=== PATIENT | female | born 2000 | race Caucasian/White ===

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

== ENCOUNTER 2021-07-12 19:04 | Emergency (ER) | payer OTHER, SELFPAY ==
[2021-07-12 19:10] VITALS: BP 118/73; PULSE 97; RESP 16; TEMP 36.2; O2SAT 100
--- NOTE | 2021-07-12 19:17 | ED.URI ---
HPI - URI/Sore Throat General Chief Complaint: Upper Respiratory Infection Stated Complaint: Sinus,Stuffy Nose,Lt Ear Irritation Time Seen by Provider: 07/12/21 19:20 Source: patient and RN notes reviewed Mode of arrival: ambulatory Limitations: no limitations History of Present Illness HPI Narrative: 21-year-old female with history of type 1 diabetes presents with concern for sinus pain, pressure, stuffy nose, left ear pain and pressure. Reports she has had upper respiratory symptoms for approximately 3 weeks and it has evolved into sinus pain and ear pressure. She reports she has been taking DayQuil and Flonase. She denies cough, shortness of breath, fever, body aches, chills, sweats. Reports she works at a daycare. MD elicited complaint: cough and sore throat Related Data Home Medications Medication Instructions Recorded Confirmed insulin aspart U-100 [Novolog 1 unit SUBCUT DIRECTED 07/12/21 07/12/21 U-100 Insulin aspart] Allergies Allergy/AdvReac Type Severity Reaction Status Date / Time No Known Allergies Allergy Verified 07/12/21 19:21 Review of Systems Review of Systems: CONSTITUTIONAL: Denies malaise, chills, sweats, or fever. EYES: Denies visual changes, redness, or discharge. ENT: Reports rhinorrhea, congestion, sinus pain, otalgia. Sore throat. CARDIOVASCULAR: Denies chest pain, palpitations, or edema. RESPIRATORY: Denies cough. Denies dyspnea. GASTROINTESTINAL: Denies abdominal pain, nausea, vomiting, diarrhea SKIN: Denies rash or itching. MUSCULOSKELETAL: Denies myalgia. NEUROLOGIC: Reports headache. All systems reviewed & are unremarkable except as noted in HPI and below PMFSH Comments At time of signature, agree with nursing past medical, surgical, social and family history. There is no relevant family history pertinent to the presenting complaint Exam Narrative: GENERAL: Well-appearing, well-nourished, and in no acute distress. HEAD: Normocephalic EYES: PERRLA, conjunctivae clear ENT: Nares clear, turbinates edematous and erythematous, sinus tenderness. Mucous membranes moist. TM pearly posada with sharp light reflex bilaterally; no tragal tenderness. Oropharynx not erythematous without lesions. Tonsils not enlarged and without exudate, no drooling, no hoarseness, no trismus, uvula midline. NECK: Supple. No lymphadenopathy CHEST: Clear to auscultation, breath sounds equal. No wheezing, rhonchi, rales, or stridor. No respiratory distress, speaks in full sentences. HEART: Regular rate and rhythm. No murmur heard. SKIN: Warm, dry, no rash. NEURO: Alert and oriented x3. PSYCH: Normal mood and affect Course Course Emergency Course: Patient is aware of diagnosis, understands and agrees to treatment plan. Anticipatory guidance given. Patient agrees to follow-up as directed and is aware of reasons to seek care at the emergency department. Portions of this record may have been created with voice recognition software Level of Care: Express Care Visit Vital Signs Vital signs: Reviewed. MDM - URI/Sore Throat MDM Narrative Medical decision making narrative: Differential diagnosis considered: Bueno virus, strep pharyngitis, allergic rhinitis, upper respiratory tract infection, sinusitis, rhinosinusitis, nasopharyngitis. viral pharyngitis, otitis media, otitis externa, pneumonia, bronchitis, viral cough syndrome, viral syndrome, and influenza. Exam findings show no acute concerns or changes; patient is non-toxic appearing and is in no distress. Patient is appropriate for outpatient treatment and follow-up. Lab Data Attestation: I reviewed the patient's lab results. Critical Care Time Critical Care Time Critical Care Time: No Discharge Plan Discharge Clinical Impression: Acute bacterial sinusitis Patient Disposition: Home, Self-Care Condition: Stable Instructions: Antibiotic Form, Sinusitis (ED) Additional Instructions: Take medications as prescribed Nonprescription pain medications
== END 2021-07-12 19:31 | disposition home or self-care (01) ==
PROVIDERS: Emergency Provider Nurse Practitioner; PCP Pediatrics
DX: J01.90 Acute sinusitis, unspecified (principal); E10.9 Type 1 diabetes mellitus without complications
CPT/HCPCS: 99213; G0463

== ENCOUNTER 2021-09-06 19:29 | Emergency (ER) | payer OTHER, SELFPAY ==
--- NOTE | 2021-09-06 19:34 | ED.URI ---
HPI - URI/Sore Throat General Stated Complaint: Body Aches,Headache,Chills,Runny Nose Time Seen by Provider: 09/06/21 19:40 Source: patient and RN notes reviewed Mode of arrival: ambulatory Limitations: no limitations History of Present Illness HPI Narrative: 21-year-old female with history of celiac disease and type 1 diabetes presents with concern for 1 day history of body aches, chills, rhinorrhea. Reports she took an at home COVID test at negative. Reports she had COVID ago. Reports she works at the [employer] where flu has been. Reports she is taking antihistamines for her symptoms. She denies nausea, vomiting, diarrhea MD elicited complaint: rhinorrhea and nasal congestion Related Data Home Medications Medication Instructions Recorded Confirmed insulin aspart U-100 [Novolog 1 unit SUBCUT DIRECTED 07/12/21 09/06/21 U-100 Insulin aspart] Allergies Allergy/AdvReac Type Severity Reaction Status Date / Time gluten Allergy Severe Abdominal Verified 09/06/21 19:53 Pain Review of Systems Review of Systems: CONSTITUTIONAL: Reports malaise, chills, fever. EYES: Denies visual changes, redness, or discharge. ENT: Reports rhinorrhea, congestion. Denies sinus pain, otalgia and sore throat. CARDIOVASCULAR: Denies chest pain, palpitations, or edema. RESPIRATORY: Reports occasional cough. Denies dyspnea. GASTROINTESTINAL: Denies abdominal pain, nausea, vomiting, diarrhea SKIN: Denies rash or itching. MUSCULOSKELETAL: Reports myalgia. NEUROLOGIC: Denies headache. All systems reviewed & are unremarkable except as noted in HPI and below [facility] Comments At time of signature, agree with nursing past medical, surgical, social and family history. There is no relevant family history pertinent to the presenting complaint Exam Narrative: GENERAL: Nontoxic-appearing and in no acute distress. HEAD: Normocephalic EYES: PERRLA, conjunctivae clear ENT: Nares clear, clear discharge. Mucous membranes moist. TM pearly posada with sharp light reflex bilaterally; no tragal tenderness. Oropharynx not erythematous without lesions. Tonsils not enlarged and without exudate, no drooling, no hoarseness, no trismus, uvula midline. NECK: Supple. No lymphadenopathy CHEST: Clear to auscultation, breath sounds equal. No wheezing, rhonchi, rales, or stridor. No respiratory distress, speaks in full sentences. HEART: Regular rate and rhythm. No murmur heard. SKIN: Warm, dry, no rash. NEURO: Alert and oriented x3. PSYCH: Normal mood and affect Course Course Emergency Course: Patient is aware of diagnosis, understands and agrees to treatment plan. Anticipatory guidance given. Patient agrees to follow-up as directed and is aware of reasons to seek care at the emergency department. Portions of this record may have been created with voice recognition software Level of Care: Express Care Visit Vital Signs Vital signs: Reviewed. MDM - URI/Sore Throat MDM Narrative Medical decision making narrative: Differential diagnosis considered: Bueno virus, strep pharyngitis, allergic rhinitis, upper respiratory tract infection, sinusitis, rhinosinusitis, nasopharyngitis. viral pharyngitis, otitis media, otitis externa, pneumonia, bronchitis, viral cough syndrome, viral syndrome, and influenza. Exam findings show no acute concerns or changes; patient is non-toxic appearing and is in no distress. Patient is appropriate for outpatient treatment and follow-up. Lab Data Attestation: I reviewed the patient's lab results. Critical Care Time Critical Care Time Critical Care Time: No Discharge Plan Discharge Clinical Impression: Acute viral syndrome Patient Disposition: Home, Self-Care Condition: Stable Instructions: Viral Syndrome (ED) Additional Instructions: Your rapid influenza is negative -Your symptoms are likely caused by a virus, and antibiotic does not cure viral illness. -Take strict precautions to prevent the spread of your virus. Be diligen
[2021-09-06 19:41] VITALS: BP 122/71; PULSE 121; RESP 18; TEMP 37.9; O2SAT 100
== END 2021-09-06 20:03 | disposition home or self-care (01) ==
PROVIDERS: Emergency Provider Nurse Practitioner; PCP Pediatrics
DX: B34.9 Viral infection, unspecified (principal); E10.9 Type 1 diabetes mellitus without complications; K90.0 Celiac disease
CPT/HCPCS: 87804; 99213; G0463

== ENCOUNTER 2022-03-18 14:34 | Emergency (ER) | payer OTHER, SELFPAY ==
[2022-03-18 16:49] VITALS: BP 128/74; PULSE 97; RESP 18; TEMP 36.8; O2SAT 100
--- NOTE | 2022-03-18 17:43 | ED.SKABFB ---
HPI - Skin/Abscess/Foreign Bdy General Chief complaint: Skin/Abscess/Foreign Body Stated complaint: rash Time Seen by Provider: 03/18/22 17:36 Source: patient Mode of arrival: ambulatory Limitations: no limitations History of Present Illness HPI narrative: patient presents today complaining of 3 day history of rash to her right upper leg. Three days prior to that she reports pins and needles feeling to this area. States the rash is very painful and itching. She currently rates her pain 5/10 and has been taking ibuprofen. She is type 1 diabetic. Related Data Home Medications Medication Instructions Recorded Confirmed insulin aspart U-100 100 unit/mL 1 unit subcut DIRECTED 07/12/21 09/06/21 subcutaneous solution (Novolog U-100 Insulin aspart) Allergies Allergy/AdvReac Type Severity Reaction Status Date / Time gluten Allergy Severe Abdominal Verified 09/06/21 19:53 Pain Review of Systems Review of Systems: CONSTITUTIONAL: Denies body aches, fever, chills, or sweats. EYES: Denies visual changes, redness, or discharge. ENT: Denies rhinorrhea, congestion, sore throat, or otalgia. CARDIOVASCULAR: Denies chest pain, palpitations, or edema. RESPIRATORY: Denies cough or dyspnea. GASTROINTESTINAL: Denies abdominal pain, nausea, vomiting, or diarrhea. GENITOURINARY: Denies dysuria or hematuria. SKIN: + Painful rash MUSCULOSKELETAL: Denies back pain, joint pain, or myalgia. NEUROLOGIC: Denies headache, numbness, tingling, or weakness. PSYCH: Denies depression or anxiety. COUNTS INCLUDE 234 BEDS AT THE [facility] Past Medical History Medical History (Updated 03/18/22 @ 17:46 by Gloria Boggs, [facility], ) Type 1 diabetes Comments At time of signature, I have reviewed and agree with nursing past medical, surgical, social and family history unless otherwise noted. Please see nursing chart for further information. There is no relevant family history pertinent to the presenting complaint Exam Narrative: GENERAL: Well-appearing, well-nourished, and in no acute distress. HEAD: Normocephalic, atraumatic. EYES: EOMI. No redness or drainage. Conjunctivae normal. ENT: Mucous membranes pink and moist. NECK: Normal AROM. CHEST: No respiratory distress. EXTREMITIES: Normal range of motion. No edema. SKIN: Warm, dry. Capillary refill normal. Normal skin turgor.+ clusters of erythematous vesicles to the anterior right upper leg. NEURO: No focal deficits. Alert and oriented x3. Gait steady. PSYCH: Normal affect. No signs of depression or anxiety. Course Course Level of Care: Express Care Visit Vital Signs Vital signs: Vital Signs Temperature 98.2 F 03/18/22 16:49 Pulse Rate 97 03/18/22 16:49 Respiratory Rate 18 03/18/22 16:49 Blood Pressure 128/74 03/18/22 16:49 Pulse Oximetry 100 03/18/22 16:49 Oxygen Delivery Room Air 03/18/22 16:49 Temperature 98.2 F 03/18/22 16:49 Pulse Rate 97 03/18/22 16:49 Respiratory Rate 18 03/18/22 16:49 Blood Pressure 128/74 03/18/22 16:49 Pulse Oximetry 100 03/18/22 16:49 Oxygen Delivery Room Air 03/18/22 16:49 Reviewed. Pt has been instructed to follow up with her PCP regarding her elevated blood pressure today. MDM - Skin/Abscess/Foreign Bdy Differential Diagnosis Differential diagnosis: Likely abscess of skin or subcutaneous tissue, viral exanthem, urticaria, herpes zoster, cellulitis, eczema, impetigo and contact dermatitis Critical Care Time Critical Care Time Critical Care Time: No Discharge Plan Discharge Clinical Impression: Herpes zoster Qualifiers: Herpes zoster complications: without complications Qualified Code(s): B02.9 - Zoster without complications Patient Disposition: Home, Self-Care Condition: Stable Instructions: Shingles (ED) Additional Instructions: Please take the valacyclovir as prescribed until gone. Continue ibuprofen for pain. Follow-up with your doctor in 1 week if symptoms are not improving. You
== END 2022-03-18 17:50 | disposition home or self-care (01) ==
PROVIDERS: Emergency Provider Nurse Practitioner; PCP Pediatrics
DX: B02.9 Zoster without complications (principal); E11.9 Type 2 diabetes mellitus without complications; Z79.4 Long term (current) use of insulin
CPT/HCPCS: 99213; G0463

== ENCOUNTER 2022-06-20 12:57 | Emergency (ER) | payer OTHER, SELFPAY ==
[2022-06-20 13:08] VITALS: BP 130/72; PULSE 87; RESP 16; TEMP 36.9; O2SAT 100
--- NOTE | 2022-06-20 13:12 | ED.FEMALEGU ---
HPI - Female Genitourinary General Chief complaint: Urogenital-Female Stated complaint: uti Time Seen by Provider: 06/20/22 13:12 Source: patient, RN notes reviewed and old records reviewed Mode of arrival: ambulatory Limitations: no limitations History of Present Illness HPI Narrative: 22 year old female who presents to [facility] care with complaints of urinary burning and funny odor of her urine for the past 2-3 days, denies any frequency or urgency or any fevers,chills or sweats. Patient reports no abdominal pain or any CVA tenderness, denies any fevers, chills or sweats.Patient is a type I diabetic since age 8 reports that her sugars have been up lately between 200-300 and she did check urine for ketones which was negative. MD elicited complaint: UTI (symptoms) Pertinent past history: other (diabetic type I) Onset (ago): day(s) (2-3) Related Data Home Medications Medication Instructions Recorded Confirmed insulin aspart U-100 100 unit/mL 1 unit subcut DIRECTED 07/12/21 06/20/22 subcutaneous solution (Novolog U-100 Insulin aspart) Allergies Allergy/AdvReac Type Severity Reaction Status Date / Time gluten AdvReac Intermediate Abdominal Verified 06/20/22 13:02 Pain Review of Systems Review of Systems: CONSTITUTIONAL: Denies fever, chills, or sweats. CARDIOVASCULAR: Denies chest pain, palpitations, or edema. RESPIRATORY: Denies cough or dyspnea. GASTROINTESTINAL: Denies abdominal pain, nausea, vomiting, or diarrhea. GENITOURINARY: Reports dysuria,no frequency, urgency. Denies flank pain or hematuria.Reports' funny' urine odor SKIN: Denies rash or itching. MUSCULOSKELETAL: Denies back pain or myalgia. Denies CVA tenderness NEUROLOGIC: Denies headache All systems reviewed & are unremarkable except as noted in HPI and below PMFSH Past Medical History Medical History (Updated 06/20/22 @ 13:49 by Mary Beth Amado NP) Celiac disease Type 1 diabetes UTI (urinary tract infection) Social History Social History (Updated 06/20/22 @ 13:48 by Mary Beth Amado NP) Smoking status: Never smoker Alcohol intake: current Alcohol use details: rare social Substance use type: does not use Living arrangements: with family Gender identity (if verbalized by the patient): Female Comments At time of signature, agree with nursing past medical, surgical, social and family history. There is no relevant family history pertinent to the presenting complaint Exam Narrative: GENERAL: Well-appearing, well-nourished, and in no acute distress. HEAD: Normocephalic, atraumatic. NECK: Supple.no lymphadenopathy CHEST: Clear to auscultation. No respiratory distress.SAO2 100% on room air HEART: Regular rate and rhythm. No murmur heard. Normal peripheral pulses. ABDOMEN: Soft, nontender, nondistended, normal active bowel sounds. No CVA tenderness, reports some burning and urine having funny odor EXTREMITIES: Normal range of motion. No edema. SKIN: Warm, dry, no rash. NEURO: No focal deficits. Alert and oriented x3. Course Course Emergency Course: Patient is aware of diagnosis, understands and agrees to treatment plan.? Anticipatory guidance given.? Patient agrees to follow-up as directed and is aware of reasons to seek care at the emergency department. Portions of this record may have been created with voice recognition software Level of Care: Express Care Visit Vital Signs Vital signs: Vital Signs Temperature 36.9 C 06/20/22 13:08 Pulse Rate 87 06/20/22 13:08 Respiratory Rate 16 06/20/22 13:08 Blood Pressure 130/72 06/20/22 13:08 Pulse Oximetry 100 06/20/22 13:08 Oxygen Delivery Room Air 06/20/22 13:08 Temperature 36.9 C 06/20/22 13:08 Pulse Rate 87 06/20/22 13:08 Respiratory Rate 16 06/20/22 13:08 Blood Pressure 130/72 06/20/22 13:08 Pulse Oximetry 100 06/20/22 13:08 Oxygen Delivery Room Air 06/20/22 13:08 reviewed MDM - Female Genitourinary MDM Narrative
== END 2022-06-20 13:27 | disposition home or self-care (01) ==
PROVIDERS: Emergency Provider Registered Nurse; PCP Pediatrics
DX: R30.0 Dysuria (principal); E10.9 Type 1 diabetes mellitus without complications; Z79.4 Long term (current) use of insulin
CPT/HCPCS: 81003; 87077; 87086; 87186; 99213; G0463

== ENCOUNTER 2024-05-28 16:13 | Emergency (ER) | payer BC, SELFPAY ==
--- OUTSIDE RECORDS SUMMARY | 2024-05-28 16:15 | XMS_ITS | Referral Summary ---
Author Organization [facility] ospital Address [address] [place] [address] Care Team Providers Care Signal Apprentice Name Role Phone Albania Butler MD Primary Care Provider [phone] Allergies Active Allergy Reactions Criticality Noted Date Comments Gluten Diarrhea Low 06/23/2019 Medications glucagon (glucagon) 1 mg kitIndications:Ty pe 1 diabetes mellitus with hyperglycemia (HCC) Use as directed for low blood sugar. 1 kit 11 01/23/20 Active acetone, urine, test strip Use as directed to check for ketones with high blood sugar or illness. 200 strip 11 02/24/20 Active glucagon (Baqsimi) 3 mg/actuation spray,non-aerosol Use as directed for severe low blood sugar. 2 each 3 02/24/20 Active blood-glucose meter kit Use as directed to check blood sugars 5-7 times daily. 1 kit 1 02/24/20 Active insulin pump cart,auto,BT-cntr (Omnipod 5 G6 Intro Kit, Gen 5,) cartridge Use as directed to administer insulin. Change pod every 2-3 days. 1 each 02/24/20 Active insulin pump cart,automated,BT (Omnipod 5 G6 Pods, Gen 5,) cartridge Use as directed to administer insulin. Change pod every 2-3 days. 15 each 11 02/24/20 Active OneTouch Delica Plus Lancet 33 gauge miscIndications:T ype 1 diabetes mellitus with hyperglycemia (HCC) Use as directed to test blood sugar 5-7 times daily. 600 each 3 03/01/20 Active OneTouch Verio test strips stripIndications: Type 1 diabetes mellitus with hyperglycemia (HCC) Use as directed to test blood sugar 5-7 times daily. 600 each 3 03/01/20 Active cholecalciferol (VITAMIN D-3) 25 mcg (1,000 unit) tablet Take 1 tablet (1,000 Units total) by mouth daily 30 tablet 2 03/01/20 Active NovoLOG 100 unit/mL vial for injectionIndicati ons:Type 1 diabetes mellitus with hyperglycemia (HCC) USE DIRECTED BY OCCUPATIONAL HEALTH PROFESSIONAL TO INJECT UP TO 140 UNITS SUBCUTANEOUSLY DAILY PER BASAL/BOLUS PUMP SETTINGS. 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 Resolved Problems Problem Noted Date Diagnosed Date Resolved Date Nonimmune to hepatitis B virus 12/09/2019 04/12/2021 Abdominal pain, generalized 04/10/2019 12/09/2019 Immunizations Name Administration Dates Next Due DTaP, Unspecified 03/14/2006, 6,08/04/2002,10/07,2001,2001 HPV, Quadrivalent 07/11/2013,03/19/2013,11/19/19 13 Hep A, Unspecified 04/09/2008,01/10/2007 Hep B, Unspecified 01/12/2021, 3,2001,04/08 HiB 08/04/2002,2001,2001 Influenza, Quadrivalent, Spl it, Preservative Free, Intramuscular 02/23/2023 Influenza, Trivalent, IM (MDV) 03/16/2012 MMR 03/14/2006,12/12/2002 Meningococcal B, OMV (Bexsero) 12/04/2018 Meningococcal Conjugate (Menveo) 11/18/2012 Meningococcal MCV4P (Menactra) 12/04/2018 Pneumococcal Conjugate PCV 13 12/12/2002 ,2001,2001,06/11 Polio, Unspecified 03/14/2006, 3,2001,06/11 Tdap 11/18/2012 Varicella 08/21/2006,08/04/2002 Social History Tobacco Use Types Packs/Day Years Used Date Smoking Tobacco: Never Smokeless Tobacco: Never Alcohol Use Standard Drinks/Week Comments Never 0 (1 standard drink = 0.6 oz pur e alcohol) AUDIT-C Answer Date Recorded Frequency of Alcohol Consumption Never 04/10/2019 Average Number of Drinks Not on file 019 Frequency of Binge Drinking Not on file 03/23 Comments No Sex and Gender Information Value Date Recorded Sex Assigned at Not on file Legal Sex Female 8:28 AM PRINCIPAL BIOINFORMATICS SPECIALIST Gender Identity Female 09/28/2019 10:39 PM CDT Sexual Orientation Straight 09/28/2019 10 :39 PM CDT Last Filed Vital Signs Vital Sign Reading Time Taken Comments Blood Pressure 120/86 02/23/2023 10:18 AM CDT Pulse 108 02/23/2023 10:18 AM CDT Temperature 36.4 C (97.5 F) 02/23/2023 10:18 AM CDT Respiratory Rate 20 02/23/2023 10:18 AM CDT Oxygen Saturation 99% 02/23/2023 10:18 AM CDT Inhaled Oxygen Concentration - - Weight 64.6 kg (142 lb 6.7 oz) 02/23/2023 10:18 AM CDT Height 169.5 cm (5' 6.73 ) 02/23/2023 10:18 AM C DT Body Mass Index 22.49 02/23/2023 10:18 AM CDT Plan of Treatment Not on file Goals Goal Patient Goal Type Associated Problems Recent Progress Patient-Stated? Author [facility]-Adherence Behavioral [facility] No change(2020 11:44 AM PRINCIPAL BIOINFORMATICS SPECIALIST) No Carmen Calzada, PhD Note: Increase consistency in completing prescribed medical regimen Increase probelm solving skills BH-Anxiety Behavioral Health No change(2020 11:44 AM PRINCIPAL BIOINFORMATICS SPECIALIST) No Fitz-[place]oy[place] Carmen johnson, PhD Note: Decrease anxious rumination Procedures Procedure Name Priority Date/Time Associated Diagnosis Comments ALBUMIN CREATININE RATIO, URINE Routine 02/23/2023 11:19 AM CDT Type 1 diabetes mellitus with hyperglycemia (HCC) LIPID PANEL Routine 02/23/2023 11:12 AM CDT Type 1 diabetes mellitus with hyperglycemia (HCC) TSH Routine 02/23/2023 11:12 AM CDT Type 1 diabetes mellitus with hyperglycemia (HCC) POCT HEMOGLOBIN A1C Routine 02/23/2023 1 0:20 AM CDT Type 1 diabetes mellitus with hyperglycemia (HCC) COMPREHENSIVE METABOLIC PANEL Routine 04/04/2021 8:42 AM PRINCIPAL BIOINFORMATICS SPECIALIST Celiac disease/sprue from Last 3 Months or Most Recently Relevant to Health Maintenance Results * Albumin Creatinine Ratio, Urine (02/23/2023 11:19 AM CDT) Albumin Ur <12.0 mg/L JOSE Comment: Interpretive Data No reference range established. Current interpretive data was last revised 2018. Testing performed by: [address] [address] Creatinine Ur 55.0 mg/dL JOSE Comment: Interpretive Data No reference range established. Current interpretive data was last revised 2018. Testing performed by: [address] [address] Albumin Creatinine Ratio, Ur <22 1 - 29 mg/g JOSE Comment:Testing performed by : [address] [address] Urine (Urine, Clean Catch) 02/23/2023 11:19 AM CDT 02/23/2023 11:51 AM CDT Krishan Halina Honey MEDICAL RECEPTIONIST BILLER LAB URINE ORDERABLES Fi nal Result Performing Organization Address [facility] Co de Phone Number [address] [place] [address] * TSH (02/23/2023 11:12 AM CDT) Thyroid Stimulating Hormone 1.45 0.30 - 4.20 mcIUnit/mL JOSE Comment:Testing performed by : [address] [address] Blood 02/23/2023 11:1 2 AM CDT 02/23/2023 2:02 PM CDT Krishan Méndez MEDICAL RECEPTIONIST BILLER LAB BLOOD ORDERABLES Fi nal Result Performing Organization Address [facility] Co de Phone Number [address] [place] [address] * Lipid panel (02/23/2023 11:12 AM CDT) Cholesterol 191 30 - 199 mg/dL JOSE Comment: Interpretive Data Ages < or = 19 years Acceptable: <170 mg/dL Borderline high: 170-199 mg/dL High: >or= 200 mg/dL Ages > or = 20 years Desirable: <200 mg/dL Borderline high: 200-239 mg/dL High: >or= 240 mg/dL Literature References: 1. Expert Panel on Integrated Guidelines for Cardiovascular Health and Risk Reduction in Children and Adolescents. Pediatrics 2011;128:S213 2. NCEP Expert Panel. Circulation 2004;110:227 Current Interpretive Data was last revised on 2017. Testing performed by: [address] [address] Triglycerides 100 <=149 mg/dL JOSE Comment: Interpretive Data Ages < or = 9 years Acceptable: <75 mg/dL Borderline high: 75-99 mg/dL High: >or= 100 mg/dL Ages 10 to 20 years Acceptable: <90 mg/dL Borderline high: 90-129 mg/dL High: >or= 130 mg/dL Ages > or = 20 years Desirable: <150 mg/dL Borderline high: 150-199 mg/dL High: 200-499 mg/dL Very high: >or= 499 mg/dL Literature References: 1. Expert Panel on Integrated Guidelines for Cardiovascular Health and Risk Reduction in Children and Adolescents. Pediatrics 2011;128:S213 2. NCEP Expert Panel. Circulation 2004;110:227 Current Interpretive Data was last revised on 2017. Testing performed by: [address] [address] HDL 62 >=40 mg/dL JOSE Comment: Interpretive Data Ages < or = 19 years Acceptable: >45 mg/dL Borderline low: 40-45 mg/dL Low: <40 mg/dL Ages > or = 20 years Desirable: >or= 60 mg/dL Low: <40 mg/dL Literature References: 1. Expert Panel on Integrated Guidelines for Cardiovascular Health and Risk Reduction in Children and Adolescents. Pediatrics 2011;128:S213 2. NCEP Expert Panel. Circulation 2004;110:227 Current Interpretive Data was last revised on 2017. Testing performed by: [address] [address] LDL, calculated 109 <=129 mg/dL JOSE Comment: Interpretive Data Ages < or = 19 years Acceptable: <110 mg/dL Borderline high: 110-129 mg/dL High: >or= 130 mg/dL Ages > or = 20 years Optimal: <100 mg/dL Near optimal: 100-129 mg/dL Borderline high: 130-159 mg/dL High: >160 mg/dL Literature References: 1. Expert Panel on Integrated Guidelines for Cardiovascular Health and Risk Reduction in Children and Adolescents. Pediatrics 2011;128:S213 2. NCEP Expert Panel. Circulation 2004;110:227 Current Interpretive Data was last revised on 2017. Testing performed by: [address] [address] Non-HDL Cholesterol 129 mg/dL JOSE Comment: Interpretive Data Ages < or = 19 years Acceptable: <120 mg/dL Borderline high: 120-144 mg/dL High: >145 mg/dL Ages > or = 20 years When triglycerides are >200 mg/dL, Non-HDL cholesterol is a secondary target of therapy with treatment goals that are 30 mg/dL greater than the LDL cholesterol target. Literature References: 1. Expert Panel on Integrated Guidelines for Cardiovascular Health and Risk Reduction in Children and Adolescents. Pediatrics 2011;128:S213 2. NCEP Expert Panel. Circulation 2004;110:227 Current Interpretive Data was last revised on 2017. Testing performed by: [address] [address] Chol/HDL ratio 3 JOSE Comment:Testing performed by : [address] [address] Blood 02/23/2023 11:1 2 AM CDT 02/23/2023 2:02 PM CDT Narrative JOSE - 02/23/2023 2:38 PM CDT These lab test should be done fasting. This means do not eat or drink for at least 12 hours prior to getting your blood drawn. Krishan Méndez NP LAB BLOOD ORDERABLES nal Result [facility] [address] [facility] Department [place] [address] * POCT hemoglobin A1c (02/23/2023 10:20 AM CDT) Hemoglobin A1C, POC 10.9 % Blood spot 02/23/2023 10:2 0 AM CDT Krishan Méndez NP POINT OF CARE TEST ORDE RABLES Final Result * (ABNORMAL) Comprehensive metabolic panel (04/04/2021 8:42 AM PRINCIPAL BIOINFORMATICS SPECIALIST) Glucose 212(H) 65 - 99 mg/dL [facility] - 01 BUN 9 6 - 20 mg/dL [facility] - 01 Creatinine, Serum 0.76 0.57 - 1.00 mg/dL [facility] - 01 eGFR If NonAfricn Am 114 >59 mL/min/1. 73 [facility] - 01 eGFR If Africn Am 132 >59 mL/min/1. 73 [facility] - 01 Comment: In accordance with recommendations from the NKF-ASN Task force, [facility] is in the process of updating its eGFR calculation to the 2020 CKD-EPI creatinine equation that estimates kidney function without a race variable. BUN/creat ratio 12 9 - 23 [facility] - 01 Sodium 139 134 - 144 mmol/L [facility] - 01 Potassium, sr 4.2 3.5 - 5.2 mmol/L [facility] - 01 Chloride 101 96 - 106 mmol/L [facility] - 01 CO2 23 20 - 29 mmol/L [facility] - 01 Calcium 10.0 8.7 - 10.2 mg/dL [facility] - 01 Protein, sr 7.4 6.0 - 8.5 g/dL [facility] - 01 Albumin 4.7 3.9 - 5.0 g/dL [facility] - 01 Globulin, Total 2.7 1.5 - 4.5 g/dL [facility] - 01 A/G Ratio 1.7 1.2 - 2.2 [facility] - 01 Bilirubin, Total 0.5 0.0 - 1.2 mg/dL [facility] - 01 Alk phos 68 42 - 106 IU/L [facility] - 01 Comment:Please note refere nce interval change AST 10 0 - 40 IU/L [facility] - 01 ALT 10 0 - 32 IU/L [facility] - 01 Blood specimen (specimen) 04/04/2021 8:42 AM PRINCIPAL BIOINFORMATICS SPECIALIST 04/04/2021 Narrative [facility] - 04/05/2021 2:10 PM PRINCIPAL BIOINFORMATICS SPECIALIST Performed at: 01 - [facility] [address] [id number] Sales Performance Analyst: Asher Nash PhD, Phone: [phone] Yeni Sullivan MD LAB BLOOD ORDERABLES Final Result [facility] - 01 from Last 3 Months or Most Recently Relevant to Health Maintenance Insurance [employer] HMO HEALTHCARE O [facility] HEALTHCARE O Advance Directives For more information, please contact: [phone] Documents on File Type Date Recorded Patient Plant Supervisor Expl anation ADVANCE DIRECTIVE 05/15/2019 6:40 AM ADVANCE DIRECTIVE 04/10/2019 3:09 PM Care Teams Signal Apprentice Relationship Specialty Start Date End Date Albania Butler MD [address] [place] [address] PCP - General 11/08/16
--- OUTSIDE RECORDS SUMMARY | 2024-05-28 16:15 | XMS_ITS | Clinical Summary ---
Author Organization [facility] ospital Address [address] [place] [address] Care Team Providers Care Employment Assistant Name Role Phone Albania Butler MD Primary Care Provider [phone] Allergies Active Allergy Reactions Criticality Noted Date [...] mellitus with hyperglycemia (HCC) USE DIRECTED BY DATA OPERATIONS DIRECTOR TO INJECT UP TO 140 UNITS SUBCUTANEOUSLY [...] Unspecified 03/14/2006, 3,2001,06/11 Tdap 11/18/2012 Varicella 08/21/2006,08/04/2002 Surgical History Surgery Date Site/Laterality Comments UPPER GASTROINTESTINAL ENDOSCOPY 04/23/2010 - 04/22/2011 Medical History Medical History Date Comments Eczema Anxiety Type 1 diabetes mellitus (HCC) 11/09/2015 Hyperlipidemia 06/17/2014 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 Abdominal pain, generalized 04/10/2019 Nonimmune to hepatitis B virus 12/09/2019 Family History Medical History Relation Name Comments Deep vein thrombosis Father Cholelithiasis Mother Heart disease Mother Reported Famil y History Of Heart Disease - grandparents (Added by TW Conv) Migraines Mother Migraine Headac he - (Added by TW Conv) Anxiety disorder Sister Depression Sister Relation Name Status Comments Brother Alive Father Alive Mother Alive Sister Alive Social History Tobacco Use Types Packs/Day Years [...] on file Legal Sex Female 8:28 AM JAVA CONSULTANT Gender Identity Female 09/28/2019 10:39 PM CDT Sexual Orientation Straight 09/28/2019 10 :39 PM CDT Obstetrics History Last Filed Vital Signs Vital Sign Reading [...] 02/23/2023 10:18 AM CDT Plan of Treatment Health Maintenance Due Date Last Done Comments Cervical Cancer Screening 2001 Depression Screening 2001 Foot Exam 2001 Hepatitis C Screening 2001 Pneumococcal vaccine <65 (1 of 1 - PPSV23 or PCV20) 2007 12/12/2002, 2001, 2001, Additional history exists Meningococcal B Vaccine (2 o f 2 - Risk Bexsero 2-dose series) 01/01/2019 12/04/2018 Regular Well Visit/Exam 18-64 2019 Dilated Eye Exam 02/09/2022 02/09/2021 eGFR 04/04/2022 04/04/2021, 11/25/2019 DTaP/Tdap/Td Vaccine (7 - Td or Tdap) 11/18/2022 11/18/2012, 03/14/2006, 10/16/2005, Additional history exists Hemoglobin A1C 08/24/2023 02/23/2023, 03/23, 01/23/2020, Additional history exists Influenza Vaccine (#1) 2023 , 02/23/2019, 03/16/2012 Albumin Creatinine Ratio, Urine 02/24/2024 02/23/2023, 04/04/2021, 02/28/2019, Additional history exists Lipid Panel 02/24/2024 02/23/2023, 03/23, 02/28/2019 TSH Level 02/24/2024 02/23/2023, 03/23, 02/28/2019 Varicella Vaccines Completed 08/21/2006, 08/04/2002 HPV Vaccines Completed 07/11/2013, 02/22, 11/18/2012 Goals Goal Patient Goal Type Associated Problems Recent Progress Patient-Stated? Author BH-[facility]herence [facility]al [facility] No change(2020 11:44 AM JAVA CONSULTANT) No Fitz-[place] ttCarmen, PhD Note: Increase consistency in completing prescribed medical regimen Increase probelm solving skills BH-Anxiety Behavioral Health No change(2020 11:44 AM JAVA CONSULTANT) No Carmen Calzada, PhD Note: Decrease anxious rumination Procedures Procedure [...] COMPREHENSIVE METABOLIC PANEL Routine 04/04/2021 8:42 AM JAVA CONSULTANT Celiac disease/sprue from Last 3 Months or Most Recently Relevant to Health Maintenance Results * Albumin Creatinine Ratio, Urine (02/23/2023 11:19 AM CDT) Albumin Ur <12.0 mg/L JOSE Comment: Interpretive Data No reference range established. Current interpretive data was last revised 2018. Testing performed by: [address] [address] Creatinine Ur 55.0 mg/dL JOSE Comment: Interpretive Data No reference range established. Current interpretive data was last revised 2018. Testing performed by: [address] [address] Albumin Creatinine Ratio, Ur <22 1 - 29 mg/g [facility]SE Comment:Testing performed by : [address] [address] Urine (Urine, Clean Catch) 02/23/2023 11:19 AM CDT 02/23/2023 11:51 AM CDT us Krishan Méndez REGISTERED LAND SURVEYOR LAB URINE ORDERABLES Fi nal Result Performing Organization Address [facility] Co de Phone Number [address] [place] [address] * TSH (02/23/2023 11:12 AM CDT) Thyroid Stimulating Hormone 1.45 0.30 - 4.20 mcIUnit/mL JOSE Comment:Testing performed by : [address] [address] Blood 02/23/2023 11:1 2 AM CDT 02/23/2023 2:02 PM CDT Krishan Méndez REGISTERED LAND SURVEYOR LAB BLOOD ORDERABLES Fi nal Result Performing Organization Address [facility] de Phone Number [address] [address] * Lipid panel (02/23/2023 11:12 AM CDT) [...] last revised on 2017. Testing performed by: [address] [address] Triglycerides 100 <=149 mg/dL JOSE Comment: Interpretive [...] last revised on 2017. Testing performed by: [address] [address] HDL 62 >=40 mg/dL JOSE Comment: Interpretive [...] last revised on 2017. Testing performed by: [address] [address] LDL, calculated 109 <=129 mg/dL JOSE Comment: [...] last revised on 2017. Testing performed by: [address] [address] Non-HDL Cholesterol 129 mg/dL JOSE Comment: Interpretive [...] last revised on 2017. Testing performed by: [address] [address] Chol/HDL ratio 3 [facility] Comment:Testing performed by : [address] [address] Blood 02/23/2023 11:1 2 AM CDT 02/23/2023 2:02 PM CDT Narrative JOSE - 02/23/2023 2:38 PM CDT These lab test should be done fasting. This means do not eat or drink for at least 12 hours prior to getting your blood drawn. Krishan Méndez NP LAB BLOOD ORDERABLES Fi nal Result [facility] [address] [facility] Department [place] [address] * POCT hemoglobin A1c (02/23/2023 10:20 AM CDT) Pathologist [facility] Hemoglobin A1C, POC 10.9 % Blood spot 02/23/2023 10:2 0 AM CDT Krihsan Méndez NP POINT OF CARE TEST ORDE RABYOSELIN Final Result * (ABNORMAL) Comprehensive metabolic panel (04/04/2021 8:42 AM JAVA CONSULTANT) Glucose 212(H) 65 - 99 mg/dL [facility] - 01 BUN 9 6 - 20 mg/dL [facility] - 01 Creatinine, Serum 0.76 0.57 - 1.00 mg/dL [facility] - 01 eGFR If NonAfricn Am 114 >59 mL/min/1. 73 [facility] - 01 eGFR If Africn Am 132 >59 mL/min/1. 73 [facility] - 01 Comment: In accordance with recommendations from the NKF-ASN Task force, [facility] is in the process of updating its [...] 01 Blood specimen (specimen) 04/04/2021 8:42 AM JAVA CONSULTANT 04/04/2021 Narrative [facility] - 04/05/2021 2:10 PM JAVA CONSULTANT Performed at: 01 - [facility] [address] [id number] Degreasing Wheel Operator: Asher Nash PhD, Phone: [phone] us Yeni Sullivan MD LAB BLOOD ORDERABLES Final Result [facility] - 01 from Last 3 Months or Most Recently Relevant to Health Maintenance [place] [address] [address] [place] [address] [place] [place] [address] HEALTHCARE O [facility] HEALTHCARE O Advance Directives For more information, please contact: [phone] Documents on File Type Date Recorded Patient Coal Mine Inspector Expl anation ADVANCE DIRECTIVE 05/15/2019 6:40 AM ADVANCE DIRECTIVE 04/10/2019 3:09 PM Care Teams Employment Assistant Relationship Specialty Start Date End Date Albania Butler MD [address] [place] [address] PCP - General 11/08/16
[2024-05-28 16:32] VITALS: BP 135/83; PULSE 98; RESP 18; TEMP 36.4; O2SAT 100
--- NOTE | 2024-05-28 16:39 | ED.FEMALEGU ---
HPI - Female Genitourinary General Chief complaint: Urogenital-Female Stated complaint: kidney pain Time Seen by Provider: 05/28/24 16:39 Source: patient and RN notes reviewed Mode of arrival: ambulatory Limitations: no limitations History of Present Illness HPI Narrative: 24 y/o female with Type 1 DM presented for c/o right flank pain. Onset yesterday. Pain worsened throughout night. endorses associated cloudy urine with foul odor. Denies urinary frequency, urgency, hematuria, nausea, vomiting, diarrhea, abdominal pain, flank pain, constipation, diarrhea, fevers or chills. Denies injury. Took Tylenol with significant improvement in the pain. Related Data Home Medications ?Medication ?Instructions ?Recorded ?Confirmed ?Last Taken ?Type insulin aspart U-100 100 unit/mL 1 unit subcut DIRECTED 07/12/21 06/20/22 Unknown History subcutaneous solution (Novolog U-100 Insulin aspart) ergocalciferol (vitamin D2) 1,250 05/28/24 Unknown History mcg (50,000 unit) capsule levothyroxine 25 mcg tablet mcg 05/28/24 Unknown History (Unithroid) Allergies Allergy/AdvReac Type Severity Reaction Status Date / Time gluten AdvReac Intermediate Abdominal Verified 05/28/24 16:43 Pain Review of Systems Review of Systems: CONSTITUTIONAL: Denies body aches, fever, chills, or sweats. CARDIOVASCULAR: Denies chest pain, palpitations, or edema. RESPIRATORY: Denies cough or dyspnea. GASTROINTESTINAL: Denies abdominal pain, nausea, vomiting, or diarrhea. GENITOURINARY: denies dysuria, frequency, urgency, hematuria, reports right flank pain SKIN: Denies rash, itching, or wounds. MUSCULOSKELETAL: Denies back pain or myalgia. [facility] Past Medical History Medical History UTI (urinary tract infection) Celiac disease Type 1 diabetes Social History Social History Smoking status: Never smoker Alcohol intake: current Alcohol use details: rare social Substance use type: does not use Living arrangements: with family Gender identity (if verbalized by the patient): Female Comments At time of signature, I have reviewed and agree with nursing past medical, surgical, social and family history unless otherwise noted. Please see nursing chart for further information. There is no relevant family history pertinent to the presenting complaint Exam Narrative: GENERAL: Well-appearing and in no acute distress. ENT: Mucous membranes pink and moist. NECK: Normal AROM. Supple. CHEST: No respiratory distress. Clear to auscultation. HEART: Regular rate and rhythm. ABDOMEN: Soft, nontender, nondistended, normal active bowel sounds. Mild right CVA tenderness MUSCULOSKELETAL: No bony tenderness. SKIN: Warm, dry, no rash. NEURO: No focal deficits. Alert and oriented x3. Gait steady. PSYCH: Normal affect. Course Course Emergency Course: Patient is aware of diagnosis, understands and agrees to treatment plan. Anticipatory guidance given. Patient agrees to follow-up as directed and is aware of reasons to seek care at the emergency department. Portions of this record may have been created with voice recognition software Level of Care: Express Care Visit Vital Signs Vital signs: Vital Signs Temperature 97.6 F 05/28/24 16:32 Pulse Rate 98 05/28/24 16:32 Respiratory Rate 18 05/28/24 16:32 Blood Pressure 135/83 05/28/24 16:32 Pulse Oximetry 100 05/28/24 16:32 Oxygen Delivery Room Air 05/28/24 16:32 Temperature 97.6 F 05/28/24 16:32 Pulse Rate 98 05/28/24 16:32 Respiratory Rate 18 05/28/24 16:32 Blood Pressure 135/83 05/28/24 16:32 Pulse Oximetry 100 05/28/24 16:32 Oxygen Delivery Room Air 05/28/24 16:32 Reviewed MDM - Female Genitourinary MDM Narrative Medical decision making narrative: Discussed physical exam findings and urine dip, right flank pain. Aware of s/s to look for regarding renal stones. Declines treatment for UTI at this time, will culture and treat accordingly. Advised supportive measures and signs/symptoms to go to the ER. Pt is appropriate for outpt treatment and f/u. Differential Diagnosis Differential diagnosis: Likely urinary tract infection and cystitis Lab Data Labs: Lab Results 05/28/24 Range/Units 16:43 POC Urine Color Light/pale POC Urine Clarity Clear POC Urine pH 5.5 POC Ur Specif Pitts 1.010 POC Urine Protein Negative (Negative) POC Ur Glucose (UA) 1+ (Negative) POC Urine Ketones Negative (Negative) POC Urine Blood 2+ (Negative) POC Urine Nitrite Negative (Negative) POC Urine Bilirubin Negative (Negative) POC Urine Urobilinogen 0.2 POC U Leukocyte Esteras 1+ (Negative) Discharge Plan Discharge Clinical Impression: Acute right flank pain Patient Disposition: Home, Self-Care Condition: Stable Instructions: Antibiotic Form, Flank Pain (ED) Additional Instructions: Your urine will be sent of for a culture to determine if bacteria is causing your symptoms. If the culture shows a UTI, you will be notified and an antibiotic will be called in for you. Increase water intake Tylenol as needed for pain/fever Avoid heavy lifting, pushing, or pulling until symptoms are fully resolved you will need to follow up with your PCP, call today to schedule follow-up appointment. Go to the ER for any worsening symptoms or concerns. Patient Language: Greek Prescriptions: No Action levothyroxine [Unithroid] 25 mcg tablet ergocalciferol (vitamin D2) 1,250 mcg (50,000 unit) capsule insulin aspart U-100 [Novolog U-100 Insulin aspart] 100 unit/mL solution 1 unit subcut DIRECTED Follow-up/Referrals: UNKNOWN,DOCTOR [Primary Care Provider] - Time of Disposition: 16:57
[2024-05-28 16:46] LABS: EDUAAPPEAR Clear; EDUABILI Negative (Negative); EDUABLOOD 2+ (Negative); EDUACOLOR1 Light/Pale; EDUAGLUCOSE 1+ (Negative); EDUAKETONE Negative (Negative); EDUALEUKO 1+ (Negative); EDUANITRATE Negative (Negative); EDUAPH 5.5; EDUAPROTEIN Negative (Negative); EDUAUROBILI 0.2
== END 2024-05-28 17:02 | disposition home or self-care (01) ==
PROVIDERS: Emergency Provider Nurse Practitioner Family
DX: R10.9 Unspecified abdominal pain (principal); E10.9 Type 1 diabetes mellitus without complications; K90.0 Celiac disease; Z79.4 Long term (current) use of insulin; Z79.899 Other long term (current) drug therapy
CPT/HCPCS: 81003; 87077; 87086; 87186; 99213; G0463

== ENCOUNTER 2024-05-30 12:35 | Emergency (ER) | payer BC, SELFPAY ==
--- OUTSIDE RECORDS SUMMARY | 2024-05-30 12:39 | XMS_ITS | Referral Summary ---
Author Organization [facility] Address [address] [place] [address] Care Team Providers Care Restaurant Hourly Team Member Name Role Phone Albania [place] MD Primary Care Provider [phone] Allergies Active Allergy Reactions Criticality Noted Date [...] mellitus with hyperglycemia (HCC) USE DIRECTED BY SPEECH/LANGUAGE THERAPIST TO INJECT UP TO 140 UNITS SUBCUTANEOUSLY [...] on file Legal Sex Female 8:28 AM PRIMARY THERAPIST Gender Identity Female 09/28/2019 10:39 PM CDT [...] [facility] No change(2020 11:44 AM PRIMARY THERAPIST) No Carmen Calzada, PhD Note: Increase consistency in completing prescribed medical regimen Increase probelm solving skills [facility] No change(2020 11:44 AM PRIMARY THERAPIST) No [place] Carmen johnson, PhD Note: Decrease anxious rumination [...] COMPREHENSIVE METABOLIC PANEL Routine 04/04/2021 8:42 AM PRIMARY THERAPIST Celiac disease/sprue from Last 3 Months or Most Recently Relevant to Health Maintenance Results * Albumin Creatinine Ratio, Urine (02/23/2023 11:19 AM CDT) Albumin Ur <12.0 mg/L JOSE Comment: Interpretive Data No reference range established. Current interpretive data was last revised 2018. Testing performed by: [address] [address] Creatinine Ur 55.0 mg/dL JOSE Comment: Interpretive Data No reference range established. Current interpretive data was last revised 2018. Testing performed by: [address] [address] Albumin Creatinine Ratio, Ur <22 1 - 29 mg/g JOSE Comment:Testing performed by : [address] [address] Urine (Urine, Clean Catch) 02/23/2023 11:19 AM CDT 02/23/2023 11:51 AM CDT Krishan Halina Honey CONTROL CLERK [employer] LAB URINE ORDERABLES Fi nal Result Performing Organization Address [facility] Co de Phone Number [address] Department [place] [address] * TSH (02/23/2023 11:12 AM CDT) Thyroid Stimulating Hormone 1.45 0.30 - 4.20 mcIUnit/mL JOSE Comment:Testing performed by : [address] [address] Blood 02/23/2023 11:1 2 AM CDT 02/23/2023 2:02 PM CDT Krishan Méndez CONTROL CLERK [employer] LAB BLOOD ORDERABLES Fi nal Result Performing Organization Address [facility] Co de Phone Number [address] [place] [address] * Lipid panel (02/23/2023 11:12 AM CDT) [...] last revised on 2017. Testing performed by: [address] [address] Triglycerides 100 <=149 mg/dL JOSE Comment: Interpretive [...] last revised on 2017. Testing performed by: [address] [address] HDL 62 >=40 mg/dL JOSE Comment: Interpretive [...] last revised on 2017. Testing performed by: [address] [address] LDL, calculated 109 <=129 mg/dL JOSE Comment: [...] last revised on 2017. Testing performed by: [address] [address] Non-HDL Cholesterol 129 mg/dL JOSE Comment: Interpretive [...] last revised on 2017. Testing performed by: [address] [address] Chol/HDL ratio 3 JOSE Comment:Testing performed by : [address] [address] Blood 02/23/2023 11:1 2 AM CDT 02/23/2023 2:02 PM CDT Narrative JOSE - 02/23/2023 2:38 PM CDT These lab test should be done fasting. This means do not eat or drink for at least 12 hours prior to getting your blood drawn. Krishan Méndez NP LAB BLOOD ORDERABLES nal Result [facility] [address] [facility] Department [place] [address] * POCT hemoglobin A1c (02/23/2023 10:20 AM CDT) Hemoglobin A1C, POC 10.9 % Blood spot 02/23/2023 10:2 0 AM CDT Krishan Méndez NP POINT OF CARE TEST ORDE RABLES Final Result * (ABNORMAL) Comprehensive metabolic panel (04/04/2021 8:42 AM PRIMARY THERAPIST) Glucose 212(H) 65 - 99 mg/dL [facility] - 01 BUN 9 6 - 20 mg/dL [facility] - 01 Creatinine, Serum 0.76 0.57 - 1.00 mg/dL [facility] - 01 eGFR If NonAfricn Am 114 >59 mL/min/1. 73 [facility] - 01 eGFR If Africn Am 132 >59 mL/min/1. 73 [facility] - 01 Comment: In accordance with recommendations from the NKF-ASN Task force, [facility] is in the process of updating its [...] 01 Blood specimen (specimen) 04/04/2021 8:42 AM PRIMARY THERAPIST 04/04/2021 Narrative [facility] - 04/05/2021 2:10 PM PRIMARY THERAPIST Performed at: 01 - [facility] [address] [id number] Bilingual Research Interviewer: Asehr Nash PhD, Phone: [phone] Yeni [place] MD LAB BLOOD ORDERABLES Final Result [facility] - 01 from Last 3 Months or Most Recently Relevant to Health Maintenance Insurance [employer] H[employer] HEALTHCARE O [facility] O Advance Directives For more information, please contact: [phone] Documents on File Type Date Recorded Patient Electrician Office Expl anation ADVANCE DIRECTIVE 05/15/2019 6:40 AM ADVANCE DIRECTIVE 04/10/2019 3:09 PM Care Teams Restaurant Hourly Team Member Relationship Specialty Start Date End Date Albania [place] MD [address] [place] [address] PCP - General 11/08/16
--- OUTSIDE RECORDS SUMMARY | 2024-05-30 12:39 | XMS_ITS ---
Author Organization [employer] [facility] Address [address] [facility] [place] [address] Care Team Providers Care Consulting Psychologist Name Role Phone Gloria Bruce [phone] Medications Medication SIG (Take, Route, Fr equency, Duration) Notes Start Date End Date Status Dexcom G6 Sensor - change every 10 days for 90 days 05/12/2024 Active Encounters Encounter Location Date Provider Diagnosis [facility] [address] [place] [address] 05/12/2024 Gloria Bruce Type 1 diabetes ruth itus without complications E10.9 Assessments Encounter Date Diagnosis (ICD Code) Assessment Notes Treatment Notes Treatment Clinical Notes Section Notes 05/12/2024 Type 1 diabetes mellitus without complications (ICD-10 - E10.9) Plan Of Treatment Medication Medication Name Sig Start Date Stop Date Notes Dexcom G6 Sensor - change every 10 days for 90 days 2024 Progress Notes * Alice SPRAGUEDOB:2000 (24 yo F)Acc No.[id number]:05/12/2024 Patient: Alice SAMUEL :2000 A ge:24 Y S ex:Female Address:[address] [place] [id number] * Refills Start Dexcom G6 Sensor Miscellaneous, -, 9, change every 10 days, 90 days, Refills=1 Subjective: * Chief Complaints: * * Medical History: * Surgical History: * Hospitalization/Major Diagno stic Procedure: * Medications: Objective: * Vitals: * Physical Examination: Assessment: * Assessment: 1. T ype 1 diabetes mellitus without complications - E10.9 (Primary) Plan: * Treatment: * Procedure Codes: * true * Date: Generated for Karla villarreal/Leonel/Clif on: 0 05/30/2024 12:39 PM GOURMET COFFEE ATTENDANT
--- OUTSIDE RECORDS SUMMARY | 2024-05-30 12:39 | XMS_ITS ---
Author Organization [email or web address] [facility] Address [address] [address] Care Team Providers Care [employer] Registrar Name Role Phone Gloria Bruce Unavailable [phone] Allergies Allergen (clinical drug ingredient) Drug/Non Drug Allergy documented on EMR Reaction Allergy Type Onset Date Status Gluten Gluten Unknown Allergy Active REASON FOR VISIT 1 month f/u philomena Medications Medication SIG (Take, Route, Frequency, Duration) Notes Start Date End Date Status Unithroid 25 MCG 1 tablet in the morn ing on an empty stomach Orally Once a day for 90 days 05/12/2024 Active Dexcom G6 Sensor - change sensor every 10 days for 90 days 05/12/2024 Active Dexcom G7 Sensor - change sensor every 10 days for 90 days 04/21/2024 Active Ergocalciferol 1.25 MG (60880 UT) 1 capsule Orally weekly for 84 days 05/12/2024 Active NovoLOG 100 UNIT/ML as directed Injection Active dexAMETHasone 1 MG 1 tablet Orally at 1 0 pm night before 8 am cortisol for 1 days 05/12/2024 Active Womens Multivitamin - as directed Orally Active Gvoke HypoPen 2-Pack 1 MG/0.2ML as directed Subcutaneous as needed for 1 days 04/21/2024 Active Problems Problem Type SNOMED Code ICD Code Onset Dates Problem Status W/U Status Risk Notes Problem Hypothyroidism (26611391) Hypothyroidism, unspecified (E03.9) Active confirmed Vital Signs Blood pressure systolic 110 mm Hg 05/12/19 25 Blood pressure diastolic 61 mm Hg 025 Heart Rate 93 /min 05/12/2024 Height 66 in 05/12/2024 Weight 161 lbs 05/12/2024 BMI 25.98 kg/m2 05/12/2024 SPO2: 97% Encounters Encounter Location Date Provider Diagnosis [facility], [facility] - Gloria Bruce [address] [place] [address] 05/12/2024 Gloria Bruce Type 1 diabetes ruth itus without complications E10.9 ; Vitamin D deficiency, unspecified E55.9 ; Hypothyroidism, unspecified E03.9 ; Abnormal weight gain R63.5 and Dietary counseling and surveillance Z71.3 Assessments Encounter Date Diagnosis (ICD Code) Assessment Notes Treatment Notes Treatment Clinical Notes Section Notes 05/12/2024 Type 1 diabetes mellitus without complications (ICD-10 - E10.9) b 05/12/2024 Vitamin D deficiency, unspecified (ICD-10 - E55.9) b 05/12/2024 Hypothyroidism, unspecified (ICD-10 - E03.9) b 05/12/2024 Abnormal weight gain (ICD-10 - R63.5) b 05/12/2024 Dietary counseling and surveillance (ICD-10 - Z71.3) b 05/12/2024 Other Assessment and Plan: Type 1 Diabetes Mellitus with Poor Glycemic ControlIncrease basal insulin rates to 1.2 units/hour during daytime and 1.1 units/hour overnightEducate on consistent carbohydrate counting and meal bolusingReview Dexcom data using Proconnect code Jesus Emphasize the importance of a regular sleep schedule for glycemic controlFollow up in 3 months or sooner if needed HypothyroidismInitiate low-dose Unithroid (levothyroxine)Instruct to take medication first thing in the morning with water only, and wait 1 hour before consuming food or drinkMonitor for signs of thyroid hormone excess, such as anxiety and palpitationsSchedule follow-up to assess thyroid function and medication tolerance Celiac DiseaseReinforce strict gluten-free diet adherenceRecommend lactose avoidance, suggesting alternatives like almond milk, oat milk, and coconut milkEncourage a diet rich in fruits, vegetables, and lean meats, with Palestinian yogurt permitted Vitamin D DeficiencyInitiate once-weekly vitamin D supplementationMonitor for improvement in overall health and metabolism Suspected HypercortisolismPerform overnight dexamethasone suppression test (1 mg dexamethasone at 10 PM, fasting cortisol level at 8 AM the following morning)Follow up to review results and assess the need for further evaluation of the uoqvmxmiloeg-upcbyvfof-td renal axis Weight GainAddress through management of underlying endocrine disorders (diabetes, hypothyroidism, possible hypercortisolism)Encourag e a balanced diet and regular physical activityMonitor weight at follow-up visits Follow-up:Schedule follow-up appointments as specified to review treatment responses and adjust plans as necessaryEncourage patient to report any new or worsening symptoms promptly Spent 15 minutes preventative counseling patient on dietary recommendations and changes in setting of hyperglycemia- need to restrict refined sugars and processed foods and incorporate up to 150 minutes of moderate level activity weekly. Spent 25 minutes preparing to see the patient (ex review of tests/chart), obtaining and / or reviewing separately obtained history, performing a medically appropriate examination and/or evaluation, counseling and educating the patient/family/caregiver, ordering medications, tests, or procedures, referring and communicating with other health palliative care nurse, documenting clinical information in the electronic or other health record, independently interpreting results and communicating results to the patient/family/caregiver and care coordinating patient plan. Patient alert and oriented x 4 and aware of discussion noted above and in agreeance to plan in management of type I DM, hypothyroidism, workup in weight gain, vit D def. b Plan Of Treatment Medication Medication Name Sig Start Date Stop Date Notes Unithroid 25 MCG 1 tablet in the morn ing on an empty stomach Orally Once a day for 90 days 05/12/2024 Dexcom G6 Sensor - change sensor every 10 days for 90 days 05/12/2024 Ergocalciferol 1.25 MG (5000 0 UT) 1 capsule Orally weekly for 84 days 05/12/2024 dexAMETHasone 1 MG 1 tablet Orally at 1 0 pm night before 8 am cortisol for 1 days 05/12/2024 Treatment Notes Assessment Notes Other Assessment and Plan: Type 1 Diabetes Mellitus with Poor Glycemic ControlIncrease basal insulin rates to 1.2 units/hour during daytime and 1.1 units/hour overnightEducate on consistent carbohydrate counting and meal bolusingReview Dexcom data using Proconnect code Jesus Emphasize the importance of a regular sleep schedule for glycemic controlFollow up in 3 months or sooner if needed HypothyroidismInitiate low-dose Unithroid (levothyroxine)Instruct to take medication first thing in the morning with water only, and wait 1 hour before consuming food or drinkMonitor for signs of thyroid hormone excess, such as anxiety and palpitationsSchedule follow-up to assess thyroid function and medication tolerance Celiac DiseaseReinforce strict gluten-free diet adherenceRecommend lactose avoidance, suggesting alternatives like almond milk, oat milk, and coconut milkEncourage a diet rich in fruits, vegetables, and lean meats, with Palestinian yogurt permitted Vitamin D DeficiencyInitiate once-weekly vitamin D supplementationMonitor for improvement in overall health and metabolism Suspected HypercortisolismPerform overnight dexamethasone suppression test (1 mg dexamethasone at 10 PM, fasting cortisol level at 8 AM the following morning)Follow up to review results and assess the need for further evaluation of the xrrsmessqbep-nlrvpbrxr-wjydfyp axis Weight GainAddress through management of underlying endocrine disorders (diabetes, hypothyroidism, possible hypercortisolism)Encourage a balanced diet and regular physical activityMonitor weight at follow-up visits Follow-up:Schedule follow-up appointments as specified to review treatment responses and adjust plans as necessaryEncourage patient to report any new or worsening symptoms promptly Spent 15 minutes preventative counseling patient on dietary recommendations and changes in setting of hyperglycemia- need to restrict refined sugars and processed foods and incorporate up to 150 minutes of moderate level activity weekly. Spent 25 minutes preparing to see the patient (ex review of tests/chart), obtaining and / or reviewing separately obtained history, performing a medically appropriate examination and/or evaluation, counseling and educating the patient/family/caregiver, ordering medications, tests, or procedures, referring and communicating with other health palliative care nurse, documenting clinical information in the electronic or other health record, independently interpreting results and communicating results to the patient/family/caregiver and care coordinating patient plan. Patient alert and oriented x 4 and aware of discussion noted above and in agreeance to plan in management of type I DM, hypothyroidism, workup in weight gain, vit D def. Next Appt Details Follow Up: 3 Months, Reason: labwork Progress Notes * Alice SPRAGUEDOB:2000 (24 yo F)Acc No.[id number]:05/12/2024 Progress Notes Patient: Alice SAMUEL Provider: Luisana Bruce MD :2000 A ge:24 Y S ex:Female Date:05/12/2024 Address:[address] [place] [address] Subjective: * Chief Complaints: * 1 . 1 month f/u philomena. * HPI: I nterval Hx: 24 yo female comes in for follow up in managemente of uncontrolled type IDM (A1C of 10.2%), subclinical hypothyroidism, cpeptide shows residual insulin function. Last seen / initial visit in Dec at that time we modified settings: 1.0 units per hour basal rate, carb ratio of 1:10. 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 She reports nocturnal hypoglycemia and inconsistent bolusing with meals. Thyroid function tests indicate subclinical hypothyroidism, and there is a suspicion of hypercortisolism due to central adiposity. The plan includes adjusting insulin rates, initiating low-dose Unithroid, reinforcing a strict gluten-free diet, and conducting an overnight dexamethasone suppression test. Follow-up is scheduled in 3 months. Patient presents with concerns about elevated A1c levels, which have been persistently high since diagnosis of diabetes at age 8. Reports recent weight gain, particularly around the midsection, with current weight approximately 135 lbs. Patient notes a history of undiagnosed celiac disease, which caused bloating. Menstrual cycles are regular at 28 days, with duration varying between 5-7 days. Patient is on insulin therapy, currently at one unit per hour during the day and 0.8 units overnight. Reports experiencing nocturnal hypoglycemia, particularly during recent schedule changes. Blood glucose control has improved since returning to a regular routine. Patient admits to inconsistent bolusing with meals, which may contribute to hyperglycemia. Patient reports symptoms suggestive of hypothyroidism, including weight gain and slowed metabolism. Additionally, the patient experiences morning anxiety, which may be related to first-year teaching stress. Sleep patterns are generally normal, occasionally excessive. 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 * ROS: N UTRITION: greater than body requirmemts y es. L ess than body requirements y es. a ppropriate / adequate y es, y es. C ONSTITUTIONAL: no w eight gain. n o l oss of appetite. n o?fever. n o w eakness. n o w eight loss. n o n ight sweats. n o n ausea. n o v isual changes. n o c hange in sleep patterns. h +p reviewed y es, R OS form reviewed with patient see scan for detail. n o c hange in activity capacity.? D ERMATOLOGY: no r carolina. n o c hange in color of moles. n o?lumps. n o d ry or sensitive skin. n o h kelsi. n o o piper skin. n o?acne. n o m oles-irregular. n o m oles-change/new. n o b oils. n o dandruff. n o e xcessive body odor. n o p soriasis. n o f ungal infections. n o n ail problems. n o r edness/inflammation. n o a thlete's foot. n o s kin cancer. n o e czema. E NDOCRINOLOGY: no f atigue. n o e xcessive sweating. n o e xcessive thirst. n o e xcessive urination. n o w eight loss. n o s leep disturbance. n o c old intolerance. n o h eat intolerence. n o t hyroid disease. n o i ncreased loss of hair. n o h x of borderline diabetes. n o d iabetes. n o a bdormal body hair. n o r heumatism. n o c hanges in skin texture.? N EUROLOGY: no h eadache. n o t ingling numbness. n o s eizures. n o i nsomnia. n o m madai loss. n o d izziness. n o g ait abnormality. n o c hange in sensation anywhere on body. n o l ocalized weakness or numbness. n o b lackouts or near blackouts. n o m igraine. n o t remors.?no f ainting spells. n o h ead injury. n o s troke. O PTHALMOLOGY: no d iminished vision. n o e ye irritation. n o?drainage from eyes. n o b lurring of vision. n o s easonal eye sx. n o?dander related eye sx. n o l oss of vision. n o c ataracts. n o g lasses/contacts. n o g laucoma. n o d etached retina. n o m acular degeneration.?no e ye redness. R ESPIRATORY: no s hortness of breath. n o c hest pain. n o?wheezing. n o a sthma. n o b reathlessness when lying flat. n o p rolonged cough. n o f requent infections (bronchitis). n o e mphysema. n o c hest congestion. n o s leep apnea. A LLERGY: no r unny nose. n o s cratchy throat. n o i tchy eyes. n o e ar fullness. n o s inus congestion. n o s tuffy nose. n o w atery eyes. n o s easonal allergies. n o h ay fever. n o a llergy.?no p olyps. n o s neezing. H EMATOLOGY/LYMPH: no s wollen glands. n o f atigue. n o l oss of appetite. n o e asy bruising. n o e asy bleeding. n o a nemia. ? U ROLOGY: no d ifficulty urinating. n o b lood in urine. n o u rinary urgency. n o f requent urination. n o u rinary incontinence. n o v oiding dysfunction. n o v ulvodynia. n o d ysparaunia. n o r ecurrent UTI. n o w eak flow. n o d ribbling after urination. n o f requent bladder infections. n o k idney stone. n o k idney disease. n o u rine hesitancy.?no p ainful urination. E NT: no c old. n o c ough. n o c oughing blood.?no n ose bleed. n o h earing loss. n o c hange in voice. n o s ore throat. n o r inging in ears. n o s noring. n o e ar pain. n o r unny nose. n o w atery eyes. n o s inus infection. n o e ar infection. n o facial pain. n o h oarseness. n o g oiter. n o g um problems. n o?postnasal drip. n o f requent nosebleeds. C ARDIOLOGY: no c hest pain. n o p alpitations. n o l eg swelling. n o d izziness. n o s hortness of breath. n o v aricose veins.?no l eg cramps. n o c old hands or feet. n o h igh blood pressure. n o ankle swelling. n o c ardiac catheterization. n o h eart attacks. n o a ngina. n o m urmurs. n o l ow blood pressure. n o l eg pain that resolves w/rest. n o p urple fingers or lips. n o i rregular heart rate. n o c ongenital heart defects. n o d izziness when standing up quickly. n o a wakening at night short of breath. G ASTROENTEROLOGY: no n ausea. n o h eartburn. n o s tool incontinence. n o r eflux. n o a bdominal pain. n o i ndigestion. n o h emorrhoids. n o h iatal hernia. n o u lcers. n o a nal fissures. n o?hepatitis. n o g allstones. n o r ed blood after bowel movements. n o v omiting. n o b loating/belching. n o d ifficulty swallowing. n o d iarrhea.?no c onstipation. n o c hange in bowel habits. n o b lood in stool. ? M USCULOSKELETAL: no j oint swelling. n o j oint pain. n o l eg cramps. n o j oint stiffness. n o a rthritis. n o b ack pain. n o?muscle aches. n o m orning stiffness. n o t endinitis. n o n toño pain. no b ursitis. n o b one marrow biopsy. n o g out. a ctivity intolerance?weakness. n o f racture. P SYCHOLOGY: high stress level y es. n o d epression. n o?sleep disturbances. n o r ruben sx worse with stress. n o s uicidal ideation. n o e ating disorder. n o m ental or physical abuse. n o a nxiety. n o h eadaches. d isease state y es. F EMALE REPRODUCTIVE: no h eavy periods. n o d ysparaunia. n o s exually active. n o p remenstrual syndrome. n o d ysmenorrhea. n o i nfertility. n o f requent yeast infections. n o v aginal itching. n o i ntermenstrual bleeding. n o p ost coital bleeding. n o p ostmenopausal bleeding. n o p elvic pain. n o m enstral cycle. n o v aginal discharge. n o v aginal dryness. n o o varian cysts. n o f ibroids. n o d ischarge from breast. n o abn. bleeding between cycles. n o p ostmenopausal symptoms. n o l oss of sexual interest. n o p ainful sexual intercourse. n o e ndometriosis. n o v aginal warts. n o a bnormal pap. n o i rregular periods. n o a bnormal vaginal discharge. n o h ot flashes. * Medical History: T ype 1 Diabetes, Ciliac Disease. * Surgical History: U pper Endoscopy- 2019 . * Hospitalization/Major Diagno stic Procedure: Lorene LEVIN . * Family History: F ather: thyroid disease. M other: asthma. G randfather: diagnosed with Heart Disease.?Grandmother: diagnosed with Cancer. * Social History: S moking: no . R ecreational drug use: no. Alcohol: yes, rarely. * Medications: T aking Womens Multivitamin(Multiple Vitamins-Minerals) - Tablet as directed Orally , Taking NovoLOG(Insulin Aspart) 100 UNIT/ML Solution as directed Injection , Taking Dexcom G7 Sensor(Continuous Glucose Sensor) - Miscellaneous change sensor every 10 days , Taking Gvoke HypoPen 2-Pack(Glucagon) 1 MG/0.2ML Solution Auto-injector as directed Subcutaneous as needed , Medication List reviewed and reconciled with the patient * Allergies: G luten. Objective: * Vitals: H R: 93, BP: 110/61, Ht: 66, Wt:161, BMI: 25.98. SPO2: 97%. * P ast Orders: L ab:T3, FREE (Order Date - 04/24/2024) (Collection Date & Time - 04/24/2024 07:50 AM) Value Reference Range T3, FREE 3.7 2.3-4.2 - pg/mL L ab:COMPREHENSIVE METABOLIC PANEL (Order Date - 04/24/2024) (Collection Date & Time - 04/24/2024 07:50 AM) Value Reference Range GLUCOSE 310 H 65-99 - mg/dL UREA NITROGEN (BUN) 11 7-25 - mg/dL CREATININE 0.77 0.50-0.96 - mg/dL BUN/CREATININE RATIO SEE NOTE: 6-22 - (calc) SODIUM 136 135-146 - mmol/L POTASSIUM 4.2 3.5-5.3 - mmol/L CHLORIDE 102 98-110 - mmol/L CARBON DIOXIDE 24 20-32 - mmol/L CALCIUM 9.2 8.6-10.2 - mg/dL PROTEIN, TOTAL 6.8 6.1-8.1 - g/dL ALBUMIN 4.2 3.6-5.1 - g/dL GLOBULIN 2.6 1.9-3.7 - g/dL (calc ) ALBUMIN/GLOBULIN RATIO 1.6 1.0-2.5 - (calc) BILIRUBIN, TOTAL 0.4 0.2-1.2 - mg/dL ALKALINE PHOSPHATASE 61 31-125 - U/L AST 12 10-30 - U/L ALT 12 6-29 - U/L EGFR 111 > OR = 60 - mL/min/1 .73m2 L ab:MICROALBUMIN, RANDOM URINE (W/CREATININE) (Order Date - 04/24/2024) (Collection Date & Time - 04/24/2024 07:56 AM) Value Reference Range CREATININE, RANDOM URINE 37 20-275 - mg/dL MICROALBUMIN 0.3 See Note: - mg/dL MICROALBUMIN/CREATININE$RATIO, RANDOM URINE 8 <30 - mg/g creat L ab:C-PEPTIDE (Order Date 04/24/2024) (Collection Date & Time - 04/24/2024 07:50 AM) Value Reference Range C-PEPTIDE 0.27 L 0.80-3.85 - ng/mL L ab:IRON AND TOTAL IRON BINDING CAPACITY (Order Date 04/24/2024) (Collection Date & Time - 04/24/2024 07:50 AM) Value Reference Range IRON, TOTAL 67 40-190 - mcg/dL IRON BINDING CAPACITY 344 250-450 - mcg/dL ( calc) % SATURATION 19 16-45 - % (calc) L ab:CBC (INCLUDES DIFF/PLT) (Order Date 04/24/2024) (Collection Date & Time - 04/24/2024 07:50 AM) Value Reference Range WHITE BLOOD CELL COUNT 8.3 3.8-10.8 - Thousa nd/uL RED BLOOD CELL COUNT 4.93 3.80-5.10 - Million /uL HEMOGLOBIN 14.5 11.7-15.5 - g/dL HEMATOCRIT 44.4 35.0-45.0 - % MCV 90.1 80.0-100.0 - fL MCH 29.4 27.0-33.0 - pg MCHC 32.7 32.0-36.0 - g/dL RDW 12.3 11.0-15.0 - % PLATELET COUNT 263 140-400 - Thousand/u L NEUTROPHILS 48.1 - % ABSOLUTE NEUTROPHILS 3992 5819-6784 - cells/u L LYMPHOCYTES 41.1 - % ABSOLUTE LYMPHOCYTES 3411 850-3900 - cells/uL MONOCYTES 6.6 - % ABSOLUTE MONOCYTES 548 200-950 - cells/uL EOSINOPHILS 3.6 - % ABSOLUTE EOSINOPHILS 299 15-500 - cells/uL BASOPHILS 0.6 - % ABSOLUTE BASOPHILS 50 0-200 - cells/uL MPV 11.9 7.5-12.5 - fL L ab:VITAMIN B12/FOLATE, SERUM PANEL (Order Date 04/24/2024) (Collection Date & Time - 04/24/2024 07:50 AM) Value Reference Range FOLATE, SERUM 11.6 - ng/mL VITAMIN B12 862 802-5857 - pg/mL L ab:VITAMIN D, 25-HYDROXY, LC/MS/MS (Order Date - 04/24/2024) (Collection Date & Time - 04/24/2024 07:50 AM) Value Reference Range VITAMIN D, 25-OH, TOTAL 26 L 30-100 - ng/mL L ab:HEMOGLOBIN A1c (Order Date - 04/24/2024) (Collection Date & Time - 04/24/2024 07:50 AM) Value Reference Range HEMOGLOBIN A1c 10.2 H <5.7 - % of total Hg b L ab:TSH (Order Date 04/24/2024) (Collection Date & Time - 04/24/2024 07:50 AM) Value Reference Range TSH 2.76 - mIU/L L ab:T4, FREE (Order Date 04/24/2024) (Collection Date & Time - 04/24/2024 07:50 AM) Value Reference Range T4, FREE 1.0 0.8-1.8 - ng/dL L ab:LIPID PANEL (Order Date 04/24/2024) (Collection Date & Time - 04/24/2024 07:50 AM) Value Reference Range TRIGLYCERIDES 96 <150 - mg/dL CHOLESTEROL, TOTAL 189 <200 - mg/dL HDL CHOLESTEROL 66 > OR = 50 - mg/dL LDL-CHOLESTEROL 104 H - mg/dL (calc) CHOL/HDLC RATIO 2.9 <5.0 - (calc) NON-HDL CHOLESTEROL 123 <130 - mg/dL (calc) * Examination: G eneral Examination: General n ormal, NAD, well nourished and hydrated, pleasant. Neck, thyroid : s upple. Heart: B P wnl, RSR, no murmurs. Lungs: n ormal, respirations easy with conversation and ambulation. Abdomen: n ormal, round, non-distended. Neurologic exam: u nremarkable. Extremities: u nremarkable. Peripheral pulses: n ormal (2+) bilaterally . Psych: o rientation to person, place & situation, appropriate judgment noted. Assessment: * Assessment: 1. T ype 1 diabetes mellitus without complications - E10.9 (Primary) 2 . V itamin D deficiency, unspecified - E55.9 3 . H ypothyroidism, unspecified - E03.9 4 . A bnormal weight gain - R63.5 5 . D ietary counseling and surveillance - Z71.3 b Plan: * Treatment: 2. V itamin D deficiency, unspecified Start Ergocalciferol Capsule, 1.25 MG (08058 UT), 1 capsule, Orally, weekly, 84 days, 12, Refills 1. 3. H ypothyroidism, unspecified Start Unithroid Tablet, 25 MCG, 1 tablet in the morning on an empty stomach, Orally, Once a day, 90 days, 90 Tablet, Refills 1. 4. A bnormal weight gain Start dexAMETHasone Tablet, 1 MG, 1 tablet, Orally, at 10 pm night before 8 am cortisol, 1 days, 1, Refills 1. 5. O thers Notes:Assessment and Plan: Type 1 Diabetes Mellitus with Poor Glycemic ControlIncrease basal insulin rates to 1.2 units/hour during daytime and 1.1 units/hour overnightEducate on consistent carbohydrate counting and meal bolusingReview Dexcom data using Proconnect code Jesus Emphasize the importance of a regular sleep schedule for glycemic controlFollow up in 3 months or sooner if needed HypothyroidismInitiate low-dose Unithroid (levothyroxine)Instruct to take medication first thing in the morning with water only, and wait 1 hour before consuming food or drinkMonitor for signs of thyroid hormone excess, such as anxiety and palpitationsSchedule follow-up to assess thyroid function and medication tolerance Celiac DiseaseReinforce strict gluten-free diet adherenceRecommend lactose avoidance, suggesting alternatives like almond milk, oat milk, and coconut milkEncourage a diet rich in fruits, vegetables, and lean meats, with Palestinian yogurt permitted Vitamin D DeficiencyInitiate once-weekly vitamin D supplementationMonitor for improvement in overall health and metabolism Suspected HypercortisolismPerform overnight dexamethasone suppression test (1 mg dexamethasone at 10 PM, fasting cortisol level at 8 AM the following morning)Follow up to review results and assess the need for further evaluation of the dwewyzdufuqx-xrvnrgihe-dytzklo axis Weight GainAddress through management of underlying endocrine disorders (diabetes, hypothyroidism, possible hypercortisolism)Encourage a balanced diet and regular physical activityMonitor weight at follow-up visits Follow-up:Schedule follow-up appointments as specified to review treatment responses and adjust plans as necessaryEncourage patient to report any new or worsening symptoms promptly Spent 15 minutes preventative counseling patient on dietary recommendations and changes in setting of hyperglycemia- need to restrict refined sugars and processed foods and incorporate up to 150 minutes of moderate level activity weekly. Spent 25 minutes preparing to see the patient (ex review of tests/chart), obtaining and / or reviewing separately obtained history, performing a medically appropriate examination and/or evaluation, counseling and educating the patient/family/caregiver, ordering medications, tests, or procedures, referring and communicating with other health palliative care nurse, documenting clinical information in the electronic or other health record, independently interpreting results and communicating results to the patient/family/caregiver and care coordinating patient plan. Patient alert and oriented x 4 and aware of discussion noted above and in agreeance to plan in management of type I DM, hypothyroidism, workup in weight gain, vit D def. * Procedure Codes: 9 9401 P/M DUPLICATING MACHINE OPERATOR, INDIV 15 MIN, 36558 GLUCOSE MONITORING, CONT * Follow Up: 3 Months (Reason: labwork) * Billing Information: * Visit Code: 98384 Office Visit, Est Pt., Level 4. * Procedure Codes: 21388 P/M DUPLICATING MACHINE OPERATOR, INDIV 15 MIN. 01558 GLUCOSE MONITORING, CONT. * VISION DIRECTOR Sign off status: Completed true * Provider: Luisana Bruce MD Date: 0 05/12/2024 Generated for Karla villarreal/Leonel/Gabeitting on: 0 05/30/2024 12:38 PM TELEVISION DIRECTOR History and Physical Notes * HPI (History of Present Illness) Category Sub-Category Detail Notes Category Not es Interval Hx 24 yo female comes in for follow up in managemente of uncontrolled type I DM (A1C of 10.2%), subclinical hypothyroidism, cpeptide shows residual insulin function. Last seen / initial visit in [facility] at that time we modified settings: 1.0 units per hour basal rate, carb ratio of 1:10. 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 She reports nocturnal hypoglycemia and inconsistent bolusing with meals. Thyroid function tests indicate subclinical hypothyroidism, and there is a suspicion of hypercortisolism due to central adiposity. The plan includes adjusting insulin rates, initiating low-dose Unithroid, reinforcing a strict gluten-free diet, and conducting an overnight dexamethasone suppression test. Follow-up is scheduled in 3 months. Patient presents with concerns about elevated A1c levels, which have been persistently high since diagnosis of diabetes at age 8. Reports recent weight gain, particularly around the midsection, with current weight approximately 135 lbs. Patient notes a history of undiagnosed celiac disease, which caused bloating. Menstrual cycles are regular at 28 days, with duration varying between 5-7 days. Patient is on insulin therapy, currently at one unit per hour during the day and 0.8 units overnight. Reports experiencing nocturnal hypoglycemia, particularly during recent schedule changes. Blood glucose control has improved since returning to a regular routine. Patient admits to inconsistent bolusing with meals, which may contribute to hyperglycemia. Patient reports symptoms suggestive of hypothyroidism, including weight gain and slowed metabolism. Additionally, the patient experiences morning anxiety, which may be related to first-year teaching stress. Sleep patterns are generally normal, occasionally excessive. 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 - Diet: Follows a gluten-free diet due to celiac disease; avoids lactose - Sleep: Generally fine, sometimes excessive - Stress: Experiences morning anxiety, likely due to work Review of Systems - Endocrine: Weight gain, especially around midsection - Gastrointestinal: Bloating (history of undiagnosed celiac) - Hematologic: Low blood sugar at night - Reproductive: Regular menstrual cycles, duration varies between 5 to 7 days - Psychiatric: Morning anxiety - Constitutional: Sometimes excessive sleep Examination Category Sub-Category Detail Notes Category Not es General Examination Neck, thyroid : supple Heart: BP wnl, RSR, no murm urs Lungs: normal, respirations easy with conversation and ambulation Abdomen: normal, round, non-d istended Extremities: unremarkable General normal, NAD, well no urished and hydrated, pleasant Neurologic exam: unremarkable Peripheral pulses: normal (2+) bilatera lly Psych: orientation to perso n, place & situation, appropriate judgment noted
--- OUTSIDE RECORDS SUMMARY | 2024-05-30 12:39 | XMS_ITS ---
Author Organization [facility] Address [address] [facility] [place] [address] Care Team Providers Care Nuclear Medicine Pet Ct Technologist Name Role Phone Gloria Bruce [phone] Encounters Encounter Location Date Provider Diagnosis [facility] [address] [place] [address] 04/24/2024 Gloria Bruce Plan Of Treatment No Information Progress Notes * Alice SPRAGUEDOB:2000 (24 yo F)Acc No.[id number]:04/24/2024 Patient: Alice SAMUEL :2000 A ge:24 Y S ex:Female Address:[address] [place] [id number] * true * Date: Generated for Cristyi cherelle/Fapeterg/eTransmitting on: 0 05/30/2024 12:38 PM [employer]
--- OUTSIDE RECORDS SUMMARY | 2024-05-30 12:39 | XMS_ITS | Clinical Summary ---
Author Organization [facility] Address [address] [place] [address] Care Team Providers Care Street Light Wirer Name Role Phone Albania Butler MD Primary Care Provider [phone] Allergies Active Allergy Reactions Criticality Noted Date [...] mellitus with hyperglycemia (HCC) USE DIRECTED BY FAMILY DAY CARE PROVIDER TO INJECT UP TO 140 UNITS SUBCUTANEOUSLY [...] on file Legal Sex Female 8:28 AM EQUIPMENT SERVICE TECHNICIAN Gender Identity Female 09/28/2019 10:39 PM CDT [...] 08/04/2002 HPV Vaccines Completed 07/11/2013, 02/22, 11/18/2012 Hepatitis B Screening Completed 01/12/2021 , 12/12/2002, 2001, Additional history exists Goals Goal Patient Goal Type Associated Problems Recent Progress Patient-Stated? Author [facility] No change(2020 11:44 AM EQUIPMENT SERVICE TECHNICIAN) No Carmen Calzada, PhD Note: Increase consistency in completing prescribed medical regimen Increase probelm solving skills [facility]-Anxiety [facility]al [facility] No change(2020 11:44 AM EQUIPMENT SERVICE TECHNICIAN) No Carmen Calzada, PhD Note: Decrease anxious [...] COMPREHENSIVE METABOLIC PANEL Routine 04/04/2021 8:42 AM EQUIPMENT SERVICE TECHNICIAN Celiac disease/sprue from Last 3 Months or Most Recently Relevant to Health Maintenance Results * Albumin Creatinine Ratio, Urine (02/23/2023 11:19 AM CDT) Albumin Ur <12.0 mg/L JOSE MERIDA Comment: Interpretive Data No reference range established. Current interpretive data was last revised 2018. Testing performed by: [address] [address] Creatinine Ur 55.0 mg/dL JOSE MERIDA Comment: Interpretive Data No reference range established. Current interpretive data was last revised 2018. Testing performed by: [address] [address] Albumin Creatinine Ratio, Ur <22 1 - 29 mg/g JOSE MERIDA Comment:Testing performed by : [address] [address] Urine (Urine, Clean Catch) 02/23/2023 11:19 AM CDT 02/23/2023 11:51 AM CDT Krishan Méndez METAL ORGAN PIPE MAKER LAB URINE ORDERABLES Fi nal Result Performing Organization Address [facility] de Phone Number [address] [address] * TSH (02/23/2023 11:12 AM CDT) Thyroid Stimulating Hormone 1.45 0.30 - 4.20 mcIUnit/mL JOSE Comment:Testing performed by : [address] [address] Blood 02/23/2023 11:1 2 AM CDT 02/23/2023 2:02 PM CDT Krishan Méndez NP LAB BLOOD ORDERABLES Fi nal Result Performing Organization Address [facility] de Phone Number [address] [address] * Lipid panel (02/23/2023 11:12 AM CDT) [...] last revised on 2017. Testing performed by: [address] [address] Triglycerides 100 <=149 mg/dL JOSE Comment: Interpretive [...] last revised on 2017. Testing performed by: [address] [address] HDL 62 >=40 mg/dL JOSE Comment: Interpretive [...] last revised on 2017. Testing performed by: [address] [address] LDL, calculated 109 <=129 mg/dL JOSE Comment: [...] last revised on 2017. Testing performed by: [address] [address] Non-HDL Cholesterol 129 mg/dL JOSE Comment: Interpretive [...] last revised on 2017. Testing performed by: [facility], [address] [place] [address]., [address] Chol/HDL ratio 3 JOSE Comment:Testing performed by : [address] [address] Blood 02/23/2023 11:1 2 AM CDT 02/23/2023 2:02 PM CDT Narrative JOSE - 02/23/2023 2:38 PM CDT These lab test should be done fasting. This means do not eat or drink for at least 12 hours prior to getting your blood drawn. Krishan Méndez NP LAB BLOOD ORDERABLES Fi nal Result [facility] [address] [facility] Department [place] [address] * POCT hemoglobin A1c (02/23/2023 10:20 AM CDT) Hemoglobin A1C, POC 10.9 % Blood spot 02/23/2023 10:2 0 AM CDT Krishan Méndez NP POINT OF CARE TEST ORDE RABLES Final Result * (ABNORMAL) Comprehensive metabolic panel (04/04/2021 8:42 AM EQUIPMENT SERVICE TECHNICIAN) Glucose 212(H) 65 - 99 mg/dL [facility] - 01 BUN 9 6 - 20 mg/dL [facility] - 01 Creatinine, Serum 0.76 0.57 - 1.00 mg/dL [facility] - 01 eGFR If NonAfricn Am 114 >59 mL/min/1. 73 [facility] - 01 eGFR If Africn Am 132 >59 mL/min/1. 73 [facility] - 01 Comment: In accordance with recommendations from the NKF-ASN Task force, [facility] is in the process of updating its [...] 01 Blood specimen (specimen) 04/04/2021 8:42 AM EQUIPMENT SERVICE TECHNICIAN 04/04/2021 Narrative [facility] - 04/05/2021 2:10 PM EQUIPMENT SERVICE TECHNICIAN Performed at: 01 - [facility] [address] [id number] Mold Sheet Cleaner: Asher Nash PhD, Phone: [phone] us Yeni Sullivan MD LAB BLOOD ORDERABLES Final Result [facility] - 01 from Last 3 Months or Most Recently Relevant to Health Maintenance [place] [address] [place] [address] [place] [address] [place] [address] HEALTHCARE HMO [facility] HMO Advance Directives For more information, please contact: [phone] Documents on File Type Date Recorded Patient Resident Intern Expl anation ADVANCE DIRECTIVE 05/15/2019 6:40 AM ADVANCE DIRECTIVE 04/10/2019 3:[address] Light Wirer Relationship Specialty Start Date End Date Albania Butler MD [address] [place] [address] PCP - General 11/08/16
--- OUTSIDE RECORDS SUMMARY | 2024-05-30 12:39 | XMS_ITS | Patient Health Record ---
Author Organization Stat [facility] Address [address] [address] Care Team Providers Care Skilled Helper Name Role Phone Gloria Bruce [phone] Allergies Allergen (clinical drug ingredient) Drug/Non Drug Allergy documented on EMR Reaction Allergy Type Onset Date Status Gluten Gluten Unknown Allergy Active Results Component Value Reference Range Notes COMPREHENSIVE METABOLIC PANE L Reviewed date:04/25/2024 11:00:06 AM Interpretation: Performing Lab:ID, [facility], [address] [place], [address] Mary JaneItzel Jimenes MD Notes/Report: FASTING:YES PATIENT UNABLE TO VOID; ADVISED TO RETURN FOR COLLECTION. FASTING: YES GLUCOSE 310 65-99 mg/dL Fasting reference interval For someone without known diabetes, a glucose value >125 mg/dL indicates that they may have diabetes and this should be confirmed with a follow-up test. UREA NITROGEN (BUN) 11 7-25 mg/dL CREATININE 0.77 0.50-0.96 mg/dL EGFR 111 > OR = 60 mL/min/1.73m2 BUN/CREATININE RATIO SEE NOTE: 6-22 (calc) Not Reported: BUN and Creatinine are within reference range. SODIUM 136 135-146 mmol/L POTASSIUM 4.2 3.5-5.3 mmol/L CHLORIDE 102 98-110 mmol/L CARBON DIOXIDE 24 20-32 mmol/L CALCIUM 9.2 8.6-10.2 mg/dL PROTEIN, TOTAL 6.8 6.1-8.1 g/dL ALBUMIN 4.2 3.6-5.1 g/dL GLOBULIN 2.6 1.9-3.7 g/dL (calc) ALBUMIN/GLOBULIN RATIO 1.6 1.0-2.5 (calc) BILIRUBIN, TOTAL 0.4 0.2-1.2 mg/dL ALKALINE PHOSPHATASE 61 31-125 U/L AST 12 10-30 U/L ALT 12 6-29 U/L VITAMIN D, 25-HYDROXY, LC/MS /MS Reviewed date:04/25/2024 11:00:06 AM Interpretation: Performing Lab:[facility], [address] [place], [address] Luciano Jimenes MD Notes/Report: FASTING:YES PATIENT UNABLE TO VOID; ADVISED TO RETURN FOR COLLECTION. FASTING: YES VITAMIN D,25-OH,TOTAL,IA 26 30-100 ng/mL Vitamin D Status 25-OH Vitamin D: Deficiency: <20 ng/mL Insufficiency: 20 - 29 ng/mL Optimal: > or = 30 ng/mL For 25-OH Vitamin D testing on patients on D2-supplementation and patients for whom quantitation of D2 and D3 fractions is required, the QuestAssureD(TM) 25-OH VIT D, (D2,D3), LC/MS/MS is recommended: order code 19826 (patients >2yrs). See Note 1 Note 1 For additional information, please refer to http://education.[employer].Vahna/faq/UDD305 (This link is being provided for informational/ educational purposes only.) T3, FREE Reviewed date:04/25/2024 11:00:06 AM Interpretation: Performing Lab:[facility], [address] [place], [address] Luciano Jimenes MD Notes/Report: FASTING:YES PATIENT UNABLE TO VOID; ADVISED TO RETURN FOR COLLECTION. FASTING: YES T3, FREE 3.7 2.3-4.2 pg/mL C-PEPTIDE Reviewed date:04/25/2024 11:00:06 AM Interpretation: Performing Lab:[facility], [address] [place], [address] Luciano Jimenes MD Notes/Report: FASTING:YES PATIENT UNABLE TO VOID; ADVISED TO RETURN FOR COLLECTION. FASTING: YES C-PEPTIDE 0.27 0.80-3.85 ng/mL HEMOGLOBIN A1c Reviewed date:04/25/2024 11:00:06 AM Interpretation: Performing Lab:[facility], [address] , [place], [address] Luciano Jimenes Notes/Report: FASTING:YES PATIENT UNABLE TO VOID; ADVISED TO RETURN FOR COLLECTION. FASTING: YES HEMOGLOBIN A1c 10.2 <5.7 % of total Hgb For someone without known diabetes, a hemoglobin A1c value of 6.5% or greater indicates that they may have diabetes and this should be confirmed with a follow-up test. For someone with known diabetes, a value <7% indicates that their diabetes is well controlled and a value greater than or equal to 7% indicates suboptimal control. A1c targets should be individualized based on duration of diabetes, age, comorbid conditions, and other considerations. Currently, no consensus exists regarding use of hemoglobin A1c for diagnosis of diabetes for children. CBC (INCLUDES DIFF/PLT) Reviewed date:04/25/2024 11:00:06 AM Interpretation: Performing Lab:[facility], [address] [place], [address] Luciano Jimenes MD Notes/Report: FASTING:YES PATIENT UNABLE TO VOID; ADVISED TO RETURN FOR COLLECTION. FASTING: YES WHITE BLOOD CELL COUNT 8.3 3.8-10.8 Thousand/ uL RED BLOOD CELL COUNT 4.93 3.80-5.10 Million/uL HEMOGLOBIN 14.5 11.7-15.5 g/dL HEMATOCRIT 44.4 35.0-45.0 % MCV 90.1 80.0-100.0 fL MCH 29.4 27.0-33.0 pg MCHC 32.7 32.0-36.0 g/dL For adults, a slight decrease in the calculated MCHC value (in the range of 30 to 32 g/dL) is most likely not clinically significant; however, it should be interpreted with caution in correlation with other red cell parameters and the patient's clinical condition. RDW 12.3 11.0-15.0 % PLATELET COUNT 263 140-400 Thousand/uL MPV 11.9 7.5-12.5 fL ABSOLUTE NEUTROPHILS 3992 6981-3602 cells/uL ABSOLUTE LYMPHOCYTES 3411 850-3900 cells/uL ABSOLUTE MONOCYTES 548 200-950 cells/uL ABSOLUTE EOSINOPHILS 299 15-500 cells/uL ABSOLUTE BASOPHILS 50 0-200 cells/uL NEUTROPHILS 48.1 LYMPHOCYTES 41.1 MONOCYTES 6.6 EOSINOPHILS 3.6 BASOPHILS 0.6 MICROALBUMIN, RANDOM URINE ( W/CREATININE) Reviewed date:04/25/2024 11:00:06 AM Interpretation: Performing Lab:[facility], [place], [address] Luciano Jimenes MD Notes/Report: SPLIT 04/24/2024 FROM [id number] CREATININE, RANDOM URINE 37 20-275 mg/dL ALBUMIN, URINE 0.3 See Note: mg/dL Reference Range: Reference Range Not established ALBUMIN/CREATININE RATIO, RANDOM URINE 8 <30 mg/g creat The ADA defines abnormalities in albumin excretion as follows: Albuminuria Category Result (mg/g creatinine) Normal to Mildly increased <30 Moderately increased 30-299 Severely increased > OR = 300 The ADA recommends that at least two of three specimens collected within a 3-6 month period be abnormal before considering a patient to be within a diagnostic category. VITAMIN B12/FOLATE, SERUM PA DIMAS Reviewed date:04/25/2024 11:00:06 AM Interpretation: Performing Lab:[facility], [address] [place], [address] Luciano Jimenes MD Notes/Report: FASTING:YES PATIENT UNABLE TO VOID; ADVISED TO RETURN FOR COLLECTION. FASTING: YES VITAMIN B12 762 313-9187 pg/mL FOLATE, SERUM 11.6 Reference Range Low: <3.4 Borderline: 3.4-5.4 Normal: >5.4 IRON AND TOTAL IRON BINDING CAPACITY Reviewed date:04/25/2024 11:00:07 AM Interpretation: Performing Lab:[facility], [address] [place], [address] Luciano Jimenes MD Notes/Report: FASTING:YES PATIENT UNABLE TO VOID; ADVISED TO RETURN FOR COLLECTION. FASTING: YES IRON, TOTAL 67 40-190 mcg/dL IRON BINDING CAPACITY 344 250-450 mcg/dL (radha c) % SATURATION 19 16-45 % (calc) LIPID PANEL Reviewed date:04/25/2024 11:00:07 AM Interpretation: Performing Lab:[facility], [place], [address] Luciano Jimenes MD Notes/Report: FASTING:YES PATIENT UNABLE TO VOID; ADVISED TO RETURN FOR COLLECTION. FASTING: YES CHOLESTEROL, TOTAL 189 <200 mg/dL HDL CHOLESTEROL 66 > OR = 50 mg/dL TRIGLYCERIDES 96 <150 mg/dL LDL-CHOLESTEROL 104 Reference range: <100 Desirable range <100 mg/dL for primary prevention; <70 mg/dL for patients with CHD or diabetic patients with > or = 2 CHD risk factors. LDL-C is now calculated using the Manjinder calculation, which is a validated novel method providing better accuracy than the Friedewald equation in the estimation of LDL-C. Nate SS et al. SUNITHA. 2013;310(19): 5212-0342 (http://education.[employer]onders[employer]/faq/KQM621) CHOL/HDLC RATIO 2.9 <5.0 (calc) NON HDL CHOLESTEROL 123 <130 mg/dL (calc) For patients with diabetes plus 1 major ASCVD risk factor, treating to a non-HDL-C goal of <100 mg/dL (LDL-C of <70 mg/dL) is considered a therapeutic option. T4, FREE Reviewed date:04/25/2024 11:00:07 AM Interpretation: Performing Lab:[facility], [address] [place], [address] Luciano Jimenes MD Notes/Report: FASTING:YES PATIENT UNABLE TO VOID; ADVISED TO RETURN FOR COLLECTION. FASTING: YES T4, FREE 1.0 0.8-1.8 ng/dL TSH Reviewed date:04/25/2024 11:00:07 AM Interpretation: Performing Lab:[facility], [address] [place], [address] Luciano Jimenes MD Notes/Report: FASTING:YES PATIENT UNABLE TO VOID; ADVISED TO RETURN FOR COLLECTION. FASTING: YES TSH 2.76 Reference Range > or = 20 Years 0.40-4.50 Ranges First trimester 0.26-2.66 Second trimester 0.55-2.73 Third trimester 0.43-2.91 Reason For Referral No Information Medications Medication SIG (Take, Route, Frequency, Duration) [...] 90 days 04/21/2024 Active Ergocalciferol 1.25 MG (26143 UT) 1 capsule Orally weekly for 84 days 05/12/2024 Active NovoLOG 100 UNIT/ML as directed Injection Active dexAMETHasone 1 MG 1 tablet Orally at 1 0 pm night before 8 am cortisol for 1 days 05/12/2024 Active Womens Multivitamin - as directed Orally Active Dexcom G6 Sensor - change every 10 days for 90 days 05/12/2024 Active Gvoke HypoPen 2-Pack 1 MG/0.2ML as directed Subcutaneous as needed for 1 days 04/21/2024 Active Problems Problem Type SNOMED Code ICD Code Onset Dates Problem Status W/U Status Risk Notes Problem Vitamin D deficiency (89536474) Vitamin D deficiency, unspecified (E55.9) Active confirmed Problem Hypothyroidism (16939924) Hypothyroidism, unspecified (E03.9) Active confirmed Problem Obesity (720302183) Obesity, unspecified (E66.9) Active confirmed Problem 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 goiter, unspecified (E04.9) Active confirmed Problem Type I diabetes mellitus without complication (189781250) Type 1 diabetes mellitus without complications (E10.9) Active confirmed Problem Irregular menstruation (86651266) Irregular menstruation, unspecified (N92.6) Active confirmed Vital Signs Heart Rate 93 /min 05/12/2024 SPO2: 97% Blood pressure diastolic 61 mm Hg 05/12/2024 SPO 2: 97% Height 66 in 05/12/2024 SPO2: 97% Blood pressure systolic 110 mm Hg 05/12/2024 SPO2 : 97% Weight 161 lbs 05/12/2024 SPO2: 97% BMI 25.98 kg/m2 05/12/2024 SPO2: 97% Encounters Encounter Location Date Provider Diagnosis [facility] - Gloria Bruce [address] [place] [address] 05/12/2024 Gloria Bruce Type 1 diabetes ruth itus without complications E10.9 ; Vitamin D deficiency, unspecified E55.9 ; Hypothyroidism, unspecified E03.9 ; Abnormal weight gain R63.5 and Dietary counseling and surveillance Z71.3 [facility] Gloria [address]imeres [address] [place] [address] 04/21/2024 Gloria Bruce Type 1 diabetes ruth itus without complications E10.9 ; Encounter for screening for lipoid disorders Z13.220 ; Vitamin D deficiency, unspecified E55.9 and Other fatigue R53.[address] [facility] Gloria Dimeres [address] [place] [address] 04/22/[address] [facility] [address] [place] [address] 04/24/[address] [facility] [address] [place] [address] 05/12/2024 Gloria Bruce Type 1 diabetes ruth itus without complications E10.9 Assessments Encounter Date Diagnosis (ICD Code) Assessment Notes Treatment Notes Treatment Clinical Notes Section Notes 05/12/2024 Vitamin D deficiency, unspecified (ICD-10 - E55.9) b 05/12/2024 Type 1 diabetes mellitus without complications (ICD-10 - E10.9) b 04/21/2024 Type 1 diabetes mellitus without complications (ICD-10 - E10.9) 04/21/2024 Encounter for screening for lipoid disorders (ICD-10 - Z13.220) 05/12/2024 Type 1 diabetes mellitus without complications (ICD-10 - E10.9) 05/12/2024 Hypothyroidism, unspecified (ICD-10 - E03.9) b 04/21/2024 Vitamin D deficiency, unspecified (ICD-10 - E55.9) 05/12/2024 Abnormal weight gain (ICD-10 - R63.5) b 04/21/2024 Other fatigue (ICD-10 - R53.83) 05/12/2024 Dietary counseling and surveillance (ICD-10 - Z71.3) b 04/21/2024 Other Assessment and Plan: 1. 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 Adjust insulin pump settings based on patient's weight (155 lbs) and insulin sensitivity. b. Changed her settings to weight based demands at 0.8 u/hr and if she feels her sugars are higher than goal range she is aware she can change basal rate to 1.0 units per hour overnight and 1.2 units per hour during the day. c. Adjust carb ratio to 1:10 and correction of 45 mg/dL. d. Schedule follow-up appointment in 3-4 weeks to review labs and assess the effectiveness of new settings. e. Encourage patient to use activity mode on insulin pump during periods of increased physical activity. 2. Continuous Glucose Monitoring (CGM) System- Patient currently using Dexcom G6 with Omnipod insulin pump.- Patient reports having one box of Dexcom G6 sensors and one transmitter left.Plan: a. Discuss the possibility of upgrading to Dexcom G7 if compatible with the patient's current insulin pump. b. Order Dexcom G6 sensors and transmitters through [employer]. c. Instruct patient to change the Gluco account to [facility] for better monitoring. 3. Insulin and Omnipod Supplies- Patient reports having sufficient insulin (NovoLog) supply.- Patient needs Omnipod supplies (five pods).Plan: a. Order Omnipod supplies through [employer] mail service. 4. Celiac Disease- Patient diagnosed in 2020, reports weight loss and bloating at the time of diagnosis.- Patient has since regained weight but denies overeating or excessive snacking.Plan: a. Continue monitoring weight and dietary habits. b. Encourage patient to maintain a gluten-free diet. 5. Anxiety related to diabetes management- Patient reports significant anxiety regarding hypoglycemia, impacting diabetes management and daily activities.Plan: a. Monitor patient's response to adjusted insulin pump settings and provide support as needed. b. Consider referral to a mental health professional if anxiety persists or worsens. Spent 45 minutes preparing to see the patient (ex review of tests/chart), obtaining and / or reviewing separately obtained history, performing a medically appropriate examination and/or evaluation, counseling and educating the patient/family/caregiver, ordering medications, tests, or procedures, referring and communicating with other health home care coordinator, documenting clinical information in the electronic or other health record, independently interpreting results and communicating results to the patient/family/caregiver and care coordinating patient plan. Patient alert and oriented x 4 and aware of discussion noted above and in agreeance to plan in management of type I DM/uncontrolled managed on omnipod 5 automated pump system. Unable to send in scripts via [employer] for dexcom and omnipod pods- I had to physically call [facility] pharmacy to call in omnipod 5 pods and send in dexcom G6 transmitter to [employer] as we cannot modify her order until mid May. refill dexcom G6 transmitter and sensor through [facility]/ [place]- switch to dexcom G7 omnipod 5 pods change every 3 days to [facility] mailorder change settings to 0.8 u/hr carb ratio 1:10 correction 45 mg/dL target 70 mg/dL uses novolog vials, good on insulin for now. 05/12/2024 Other Assessment and Plan: Type 1 [...] in fruits, vegetables, and lean meats, with Bulgarian yogurt permitted Vitamin D DeficiencyInitiate once-weekly vitamin D supplementationMonitor for improvement in overall health and metabolism Suspected HypercortisolismPerform overnight dexamethasone suppression test (1 mg dexamethasone at 10 PM, fasting cortisol level at 8 AM the following morning)Follow up to review results and assess the need for further evaluation of the nwtltnllwvaf-[id number]-wp renal axis Weight GainAddress through management of [...] procedures, referring and communicating with other health home care coordinator, documenting clinical information in the electronic or other health record, independently interpreting results and communicating results to the patient/family/caregiver and care coordinating patient plan. Patient alert and oriented x 4 and aware of discussion noted above and in agreeance to plan in management of type I DM, hypothyroidism, workup in weight gain, vit D def. b Plan Of Treatment Pending Test Test Name Order Date Ultrasound thyroid 04/21/2024 Insurance Providers Payer Name Payer Address Payer Phone Subscriber Number Group Number Insured Name Patient Relationship to Insured Coverage Start Date Coverage End Date [facility] [address] [place] [address] [id number] Alice Sprague Self - patient is the insured Medical (General) History Medical History History ICD Code Type 1 Diabetes Ciliac Disease Surgical History Surgery Date(Month/Year) Upper Endoscopy- 2019 Hospitalization History Reason Date(Month/Year) DKA
[2024-05-30 12:43] VITALS: BP 140/66; PULSE 133; RESP 16; TEMP 36.7; O2SAT 99
[2024-05-30 13:06] LABS: EDSTREPNEGPOS1 Negative (Negative)
[2024-05-30 13:16] LABS: EDINFLUASCREEN Negative (Negative); EDINFLUBSCREEN Negative (Negative)
--- NOTE | 2024-05-30 13:52 | ED.GENADULT ---
HPI - General Adult General Chief complaint: Upper Respiratory Infection Stated complaint: fever and headache Source: patient Mode of arrival: ambulatory Limitations: no limitations History of Present Illness HPI narrative: Patient presents for evaluation of sick symptoms. She was evaluated here in 05/28/2024 with reports of right flank pain. She declined treatment for UTI at that time. She was experiencing malodorous urine at that time which has persisted. She denies any other urinary symptoms. She reports developing a fever last night. She also has chills, generalized body aches, headache, and postnasal drainage. No cough, SOB, nausea, vomiting, diarrhea, abdominal pain or vaginal bleeding. She is type 1 diabetic and has an insulin pump. BS normally in 130-150 range. Current reading is 331, which is typical for her when she gets sick. She states insulin from pump adjusts and her BS improve. Related Data Home Medications ?Medication ?Instructions ?Recorded ?Confirmed ?Last Taken ?Type insulin aspart U-100 100 unit/mL 1 unit subcut DIRECTED 07/12/21 06/20/22 Unknown History subcutaneous solution (Novolog U-100 Insulin aspart) ergocalciferol (vitamin D2) 1,250 05/28/24 Unknown History mcg (50,000 unit) capsule levothyroxine 25 mcg tablet mcg 05/28/24 Unknown History (Unithroid) Allergies Allergy/AdvReac Type Severity Reaction Status Date / Time gluten AdvReac Intermediate Abdominal Verified 05/30/24 12:45 Pain Review of Systems Review of Systems: CONSTITUTIONAL: Reports fever and chills EYES: Denies visual changes, redness, or discharge. ENT: Reports postnasal drainage. Denies otalgia. CARDIOVASCULAR: Denies chest pain, palpitations, or edema. RESPIRATORY: Denies cough or dyspnea. GASTROINTESTINAL: Denies abdominal pain, nausea, vomiting, or diarrhea. GENITOURINARY: Reports right flank pain and malodorous urine. Denies dysuria or hematuria. SKIN: Denies rash or itching. MUSCULOSKELETAL: Reports generalized body aches NEUROLOGIC: Reports headache. Denies numbness, dizziness, or weakness. PSYCHIATRIC: Denies anxiety or depression. [facility] Past Medical History Medical History UTI (urinary tract infection) Celiac disease Type 1 diabetes Surgical History Surgical History No pertinent past surgical history Family History Family History Mother Family history non-contributory Social History Social History Smoking status: Never smoker Alcohol intake: current Alcohol use details: rare social Substance use type: does not use Living arrangements: with family Gender identity (if verbalized by the patient): Female Exam Narrative: GENERAL: Well-appearing, well-nourished, and in no acute distress. HEAD: Normocephalic, atraumatic. EYES: PERRLA and EOMI. ENT: Nares clear, no rhinorrhea or epistaxis. Mucous membranes moist. Oropharynx without tonsillar hypertrophy exudate or other lesions. Bilateral TMs pearly posada nonbulging NECK: Supple. No adenopathy or masses. No carotid bruits or JVD CHEST: Clear to auscultation. No respiratory distress. No wheezes rales or rhonchi HEART: Rate 120. Regular rhythm. No murmur heard. Normal peripheral pulses. ABDOMEN: Soft, nontender, nondistended, normal active bowel sounds. EXTREMITIES: Normal range of motion. No edema. BACK: Right CVA tenderness present SKIN: Warm, dry, no rash. NEURO: No focal deficits. Alert and oriented x3. PSYCH: Normal mood and affect. Course Course Emergency Course: This is a 24-year-old female who presented for evaluation of sick symptoms. She was seen here on the of this month and had unilateral flank pain. Today she has right-sided CVA tenderness. She is nitrite positive and E coli grew out on urine culture from 05/28/2024. Her blood sugar while here was 331. She is also tachycardic. I am concerned she may have sepsis and DKA from potentially an obstructing kidney stone. I recommended she be transferred to the hospital for further evaluation and treatment. She was agreeable to this plan. [facility] is her facility of choice. I contacted the emergency department at [facility] and spoke with Dr. Leos. He agreed to accept patient for transfer to the department there. Patient transferred via private vehicle. Level of Care: Express Care Visit Vital Signs Vital signs: Vital Signs Temperature 36.7 C 05/30/24 12:43 Pulse Rate 133 H 05/30/24 12:43 Respiratory Rate 16 05/30/24 12:43 Blood Pressure 140/66 05/30/24 12:43 Pulse Oximetry 99 05/30/24 12:43 Oxygen Delivery Room Air 05/30/24 12:43 Temperature 36.7 C 05/30/24 12:43 Pulse Rate 133 H 05/30/24 12:43 Respiratory Rate 16 05/30/24 12:43 Blood Pressure 140/66 05/30/24 12:43 Pulse Oximetry 99 05/30/24 12:43 Oxygen Delivery Room Air 05/30/24 12:43 Medical Decision Making Vital Signs Vital Signs: Vital Signs Temperature 36.7 C 05/30/24 12:43 Pulse Rate 133 H 05/30/24 12:43 Respiratory Rate 16 05/30/24 12:43 Blood Pressure 140/66 05/30/24 12:43 Pulse Oximetry 99 05/30/24 12:43 Oxygen Delivery Room Air 05/30/24 12:43 Temperature 36.7 C 05/30/24 12:43 Pulse Rate 133 H 05/30/24 12:43 Respiratory Rate 16 05/30/24 12:43 Blood Pressure 140/66 05/30/24 12:43 Pulse Oximetry 99 05/30/24 12:43 Oxygen Delivery Room Air 05/30/24 12:43 Lab Data Labs: Lab Results 05/30/24 05/30/24 05/30/24 Range/Units 13:04 13:13 14:00 POC Urine Color Yellow POC Urine Clarity Cloudy POC Urine pH 6.0 POC Ur Specif [place] 1.015 POC Urine Protein Negative (Negative) POC Ur Glucose (UA) 2+ (Negative) POC Urine Ketones 3+ (Negative) POC Urine Blood Negative (Negative) POC Urine Nitrite Positive (Negative) POC Urine Bilirubin Negative (Negative) POC Urine Urobilinogen 0.2 POC U Leukocyte Esteras Negative (Negative) POC Influenza A Ag Negative (Negative) POC Influenza B Ag Negative (Negative) POC Grp A Strep Screen Negative (Negative) Discharge Plan Discharge Clinical Impression: UTI (urinary tract infection), Acute flank pain, Tachycardia, Diabetes mellitus with hyperglycemia Patient Disposition: Acute Care Hospital Condition: Stable Instructions: Antibiotic Form, Urinary Tract Infection in Women (ED), Viral Syndrome (ED), Flank Pain (ED) Patient Language: Bahraini Prescriptions: No Action levothyroxine [Unithroid] 25 mcg tablet ergocalciferol (vitamin D2) 1,250 mcg (50,000 unit) capsule insulin aspart U-100 [Novolog U-100 Insulin aspart] 100 unit/mL solution 1 unit subcut DIRECTED Follow-up/Referrals: Teo,Gloria Gordon MD [Primary Care Provider] - Time of Disposition: 14:27
[2024-05-30 14:03] LABS: EDUAAPPEAR Cloudy; EDUABILI Negative (Negative); EDUABLOOD Negative (Negative); EDUACOLOR1 Yellow; EDUAGLUCOSE 2+ (Negative); EDUAKETONE 3+ (Negative); EDUALEUKO Negative (Negative); EDUANITRATE Positive (Negative); EDUAPROTEIN Negative (Negative); EDUASPGRAVITY 1.015; EDUAUROBILI 0.2
== END 2024-05-30 14:28 | disposition short-term general hospital (02) ==
PROVIDERS: Emergency Provider Nurse Practitioner; PCP Internal Medicine Endocrinology, Diabetes & Metabolism
DX: N39.0 Urinary tract infection, site not specified (principal); R10.9 Unspecified abdominal pain; R00.0 Tachycardia, unspecified; E10.65 Type 1 diabetes mellitus with hyperglycemia; Z79.4 Long term (current) use of insulin; Z96.41 Presence of insulin pump (external) (internal); K90.0 Celiac disease
CPT/HCPCS: 81003; 87077; 87081; 87086; 87186; 87804; 87880; 99213; G0463

== ENCOUNTER 2024-05-30 14:59 | Emergency (ER) | payer BC, SELFPAY ==
--- NOTE | ~2024-05-30 | XR_ITS ---
CHEST RADIOGRAPH, PA AND LATERAL CLINICAL HISTORY: fever . COMPARISON: None available TECHNIQUE: PA and lateral views of the chest. FINDINGS The cardiomediastinal silhouette is unremarkable. The lungs are clear. Visualized osseous structures and soft tissues are unremarkable. IMPRESSION: No focal infiltrate or effusion. Reviewed, dictated and finalized at location A. RUCTOR ADJUNCT SURGICAL TECHNICIAN
--- NOTE | ~2024-05-30 | CT_ITS ---
EXAMINATION: CT abdomen pelvis wo con DATE: 05/30/2024 15:51 INDICATION: Right flank pain TECHNIQUE: Computed tomography (CT) of the abdomen and pelvis was performed without intravenous contr ast. Automated exposure control and iterative reconstruction technique were employed. The dose-length product was 340.40 mGy-cm. COMPARISON: None FINDINGS: Bases are clear. Heart size normal. No pericardial or pleural effusion. Liver, gallbladder, spleen, p ancreas and bilateral adrenal glands are normal. Couple 1 mm nonobstructing stones at the right kidne y and 1 in the left kidney. No ureteral stones or hydronephrosis. Bowels are normal. The appendix is not visualized. No pericecal inflammatory change to suggest acute appendicitis.. Bladder is normal. Tampon within the vaginal vault. Anteverted uterus is unremarkable. No free intraperitoneal gas or fl uid. No pathologically enlarged abdominal or pelvic lymphadenopathy. Bones are unremarkable. IMPRESSION: 1. A few punctate nonobstructing bilateral renal stones. No ureteral stones or hydronephrosis. Reviewed, dictated and finalized at location B. ICE MUSIC THERAPIST
--- OUTSIDE RECORDS SUMMARY | 2024-05-30 15:02 | XMS_ITS | Clinical Summary ---
Author Organization [facility] ospital Address [address] [place] [address] Care Team Providers Care Truss Driver Helper Name Role Phone Albania Butler MD Primary Care Provider [phone] Allergies Active Allergy Reactions Criticality Noted Date [...] mellitus with hyperglycemia (HCC) USE DIRECTED BY AUTOMOTIVE INTERNET SALES MANAGER TO INJECT UP TO 140 UNITS SUBCUTANEOUSLY [...] on file Legal Sex Female 8:28 AM PHARMACY SCHEDULER Gender Identity Female 09/28/2019 10:39 PM CDT [...] [facility]al [facility] No change(2020 11:44 AM PHARMACY SCHEDULER) No Carmen Calzada, PhD Note: Increase consistency in completing prescribed medical regimen Increase probelm solving skills BH-Anxiety Behavioral Health No change(2020 11:44 AM PHARMACY SCHEDULER) No Carmen Calzada, PhD Note: Decrease anxious [...] COMPREHENSIVE METABOLIC PANEL Routine 04/04/2021 8:42 AM PHARMACY SCHEDULER Celiac disease/sprue from Last 3 Months or Most Recently Relevant to Health Maintenance Results * Albumin Creatinine Ratio, Urine (02/23/2023 11:19 AM CDT) Albumin Ur <12.0 mg/L JOES MERIDA Comment: Interpretive Data No reference range established. Current interpretive data was last revised 2018. Testing performed by: [address] [address] Creatinine Ur 55.0 mg/dL JOSE MERIDA Comment: Interpretive Data No reference range established. Current interpretive data was last revised 2018. Testing performed by: [address] [address] Albumin Creatinine Ratio, Ur <22 1 - 29 mg/g JOSE MERIDA Comment:Testing performed by : [address] [address] Urine (Urine, Clean Catch) 02/23/2023 11:19 AM CDT 02/23/2023 11:51 AM CDT Krishan Méndez ORDER MANAGEMENT SPECIALIST LAB URINE ORDERABLES Fi nal Result Performing Organization Address [facility] de Phone Number [address] [address] * TSH (02/23/2023 11:12 AM CDT) Thyroid Stimulating Hormone 1.45 0.30 - 4.20 mcIUnit/mL JOSE Comment:Testing performed by : [address] [address] Blood 02/23/2023 11:1 2 AM CDT 02/23/2023 2:02 PM CDT Krishan Méndez NP LAB BLOOD ORDERABLES Fi nal Result Performing Organization Address [facility] de Phone Number [address] [address] * Lipid panel (02/23/2023 11:12 AM CDT) [...] last revised on 2017. Testing performed by: [address] [address] Triglycerides 100 <=149 mg/dL JOSE Comment: Interpretive [...] last revised on 2017. Testing performed by: [address] [address] HDL 62 >=40 mg/dL JOSE Comment: Interpretive [...] last revised on 2017. Testing performed by: [address] [address] LDL, calculated 109 <=129 mg/dL JOSE Comment: [...] last revised on 2017. Testing performed by: [address] [address] Non-HDL Cholesterol 129 mg/dL JOSE Comment: Interpretive [...] last revised on 2017. Testing performed by: [facility], [address] [place] [address]., [address] Chol/HDL ratio 3 OJSE Comment:Testing performed by : [address] [address] Blood 02/23/2023 11:1 2 AM CDT 02/23/2023 2:02 PM CDT Narrative JOSE - 02/23/2023 2:38 PM CDT These lab test should be done fasting. This means do not eat or drink for at least 12 hours prior to getting your blood drawn. Krishan Méndez NP LAB BLOOD ORDERABLES Fi nal Result [facility] [address] [facility] Department [place] [address] * POCT hemoglobin A1c (02/23/2023 10:20 AM CDT) Hemoglobin A1C, POC 10.9 % Blood spot 02/23/2023 10:2 0 AM CDT Krishan Méndez NP POINT OF CARE TEST ORDE RABLES Final Result * (ABNORMAL) Comprehensive metabolic panel (04/04/2021 8:42 AM PHARMACY SCHEDULER) Glucose 212(H) 65 - 99 mg/dL [facility] - 01 BUN 9 6 - 20 mg/dL [facility] - 01 Creatinine, Serum 0.76 0.57 - 1.00 mg/dL [facility] - 01 eGFR If NonAfricn Am 114 >59 mL/min/1. 73 [facility] - 01 eGFR If Africn Am 132 >59 mL/min/1. 73 [facility] - 01 Comment: In accordance with recommendations from the NKF-ASN Task force, [facility] is in the process of updating its [...] 01 Blood specimen (specimen) 04/04/2021 8:42 AM PHARMACY SCHEDULER 04/04/2021 Narrative [facility] - 04/05/2021 2:10 PM PHARMACY SCHEDULER Performed at: 01 - [facility] [address] [id number] Optical Glass Sawyer: Asher Nash PhD, Phone: [phone] us Yeni Sullivan MD LAB BLOOD ORDERABLES Final Result [facility] - 01 from Last 3 Months or Most Recently Relevant to Health Maintenance [place] [address] [place] [address] [place] [address] [place] [address] HEALTHCARE HMO [facility] HEALTHCARE HMO Advance Directives For more information, please contact: [phone] Documents on File Type Date Recorded Patient Electrical Intern Expl anation ADVANCE DIRECTIVE 05/15/2019 6:40 AM ADVANCE DIRECTIVE 04/10/2019 3:09 PM Care Teams Truss Driver Helper Relationship Specialty Start Date End Date Albania Butler MD [address] [place] [address] PCP - General 11/08/16
--- OUTSIDE RECORDS SUMMARY | 2024-05-30 15:02 | XMS_ITS | Referral Summary ---
Author Organization [facility] o[facility] Address [address] [place] [address] Care Team Providers Care Teaching Fellow Name Role Phone Albania Butler MD Primary Care Provider [phone] Allergies Active Allergy Reactions Criticality Noted Date [...] mellitus with hyperglycemia (HCC) USE DIRECTED BY HORIZONTAL RESAW OPERATOR TO INJECT UP TO 140 UNITS SUBCUTANEOUSLY [...] on file Legal Sex Female 8:28 AM TENT FINISHER Gender Identity Female 09/28/2019 10:39 PM CDT [...] [facility] No change(2020 11:44 AM TENT FINISHER) No Carmen Calzada, PhD Note: Increase consistency in completing prescribed medical regimen Increase probelm solving skills [facility]-Anxiety Behavioral Health No change(2020 11:44 AM TENT FINISHER) No [place] Carmen johnson, PhD Note: Decrease anxious rumination [...] COMPREHENSIVE METABOLIC PANEL Routine 04/04/2021 8:42 AM TENT FINISHER Celiac disease/sprue from Last 3 Months or Most Recently Relevant to Health Maintenance Results * Albumin Creatinine Ratio, Urine (02/23/2023 11:19 AM CDT) Albumin Ur <12.0 mg/L JOSE Comment: Interpretive Data No reference range established. Current interpretive data was last revised 2018. Testing performed by: [address] [address] Creatinine Ur 55.0 mg/dL JOSE Comment: Interpretive Data No reference range established. Current interpretive data was last revised 2018. Testing performed by: [address] [address] Albumin Creatinine Ratio, Ur <22 1 - 29 mg/g JOSE Comment:Testing performed by : [address] [address] Urine (Urine, Clean Catch) 02/23/2023 11:19 AM CDT 02/23/2023 11:51 AM CDT Krishan Halina Honey PRENATAL TEACHER LAB URINE ORDERABLES Fi nal Result Performing Organization Address [facility] Co de Phone Number [address] [place] [address] * TSH (02/23/2023 11:12 AM CDT) Thyroid Stimulating Hormone 1.45 0.30 - 4.20 mcIUnit/mL JOSE Comment:Testing performed by : [address] [address] Blood 02/23/2023 11:1 2 AM CDT 02/23/2023 2:02 PM CDT Krishan Méndez PRENATAL TEACHER LAB BLOOD ORDERABLES Fi nal Result Performing Organization Address [facility] Co de Phone Number [address] [place] [address] * Lipid panel (02/23/2023 11:12 AM CDT) [...] last revised on 2017. Testing performed by: [address] [address] Triglycerides 100 <=149 mg/dL JOSE Comment: Interpretive [...] last revised on 2017. Testing performed by: [address] [address] HDL 62 >=40 mg/dL JOSE Comment: Interpretive [...] last revised on 2017. Testing performed by: [address] [address] LDL, calculated 109 <=129 mg/dL JOSE Comment: [...] last revised on 2017. Testing performed by: [address] [address] Non-HDL Cholesterol 129 mg/dL JOSE Comment: Interpretive [...] last revised on 2017. Testing performed by: [address] [address] Chol/HDL ratio 3 JOSE Comment:Testing performed by : [address] [address] Blood 02/23/2023 11:1 2 AM CDT 02/23/2023 2:02 PM CDT Narrative JOSE - 02/23/2023 2:38 PM CDT These lab test should be done fasting. This means do not eat or drink for at least 12 hours prior to getting your blood drawn. Krishan Méndez NP LAB BLOOD ORDERABLES nal Result [facility] [address] [facility] Department [place] [address] * POCT hemoglobin A1c (02/23/2023 10:20 AM CDT) Hemoglobin A1C, POC 10.9 % Blood spot 02/23/2023 10:2 0 AM CDT Krishan Méndez NP POINT OF CARE TEST ORDE RABLES Final Result * (ABNORMAL) Comprehensive metabolic panel (04/04/2021 8:42 AM TENT FINISHER) Glucose 212(H) 65 - 99 mg/dL [facility] - 01 BUN 9 6 - 20 mg/dL [facility] - 01 Creatinine, Serum 0.76 0.57 - 1.00 mg/dL [facility] - 01 eGFR If NonAfricn Am 114 >59 mL/min/1. 73 [facility] - 01 eGFR If Africn Am 132 >59 mL/min/1. 73 [facility] - 01 Comment: In accordance with recommendations from the NKF-ASN Task force, [facility] the [facility] [...] 01 Blood specimen (specimen) 04/04/2021 8:42 AM TENT FINISHER 04/04/2021 Narrative [facility] - 04/05/2021 2:10 PM TENT FINISHER Performed at: 01 - [facility] [address] [id number] Medical Laboratory Technologist: Asher Nash PhD, Phone: [phone] Yeni Sullivan MD LAB BLOOD ORDERABLES Final Result [facility] - 01 from Last 3 Months or Most Recently Relevant to Health Maintenance Insurance [employer] HMO HEALTHCARE O [facility] HEALTHCARE O Advance Directives For more information, please contact: [phone] Documents on File Type Date Recorded Patient Core Inspector Expl anation ADVANCE DIRECTIVE 05/15/2019 6:40 AM ADVANCE DIRECTIVE 04/10/2019 3:09 PM Care Teams Teaching Fellow Relationship Specialty Start Date End Date Albania Butler MD [address] [place] [address] PCP - General 11/08/16
[2024-05-30 15:06] VITALS: BP 130/93; PULSE 139; RESP 19; TEMP 36.6; O2SAT 100
--- NOTE | 2024-05-30 15:10 | ED_ITS ---
HPI - Female Genitourinary General Chief complaint: Urogenital-Female <Mackenzie Allen PA-C - Last Filed: 05/30/24 15:10> Stated complaint: uti? <Mackenzie Allen PA-C - Last Filed: 05/30/24 15:10> Time Seen by Provider: 05/30/24 16:53 <Mackenzie Allen PA-C - Last Filed: 05/30/24 15:10> Focused HPI: 24-year-old female with history of type 1 diabetes, hypothyroidism, celiac disease presents emergency department from urgent care to rule out a kidney stone. Patient states on Sunday she began having pain in the right flank. Yesterday she began having fevers went to the urgent care today and was told she had urinary tract infection with a lot of blood so was sent to the ED to rule out kidney stone. She denies history of kidney stones, denies abdominal pain, nausea or vomiting. She reports some congestion. States her sugars at home have been difficult to control today and been in the 300 secondary to being sick. She denies dysuria or hematuria. GENERAL: Well-appearing, well-nourished, and in no acute distress. HEAD: Normocephalic, atraumatic. CHEST: Clear to auscultation. ?No respiratory distress. HEART: Regular rate and rhythm.? NEURO: ?Alert and oriented x3. Patient screened in triage and initial orders placed.? ?Additional care and disposition to be based upon?diagnostic testing and treatment. <Mackenzie Allen PA-C - Last Filed: 05/30/24 15:10> History of Present Illness HPI Narrative: I agree with the above HPI <Brian Leos MD - Last Filed: 05/30/24 19:24> Related Data Home medications: Home Medications ?Medication ?Instructions ?Recorded ?Confirmed ?Last Taken ?Type insulin aspart U-100 100 unit/mL 1 unit subcut DIRECTED 07/12/21 06/20/22 Unknown History subcutaneous solution (Novolog U-100 Insulin aspart) ergocalciferol (vitamin D2) 1,250 05/28/24 Unknown History mcg (50,000 unit) capsule levothyroxine 25 mcg tablet mcg 05/28/24 Unknown History (Unithroid) <Mackenzie Allen PA-C - Last Filed: 05/30/24 15:10> Allergies/Adverse reactions: Allergies Allergy/AdvReac Type Severity Reaction Status Date / Time gluten AdvReac Intermediate Abdominal Verified 05/30/24 12:45 Pain <Mackenzie Allen PA-C - Last Filed: 05/30/24 15:10> Review of Systems 2 Review of Systems: All systems reviewed & are unremarkable except as noted in HPI and below <Brian Leos MD - Last Filed: 05/30/24 19:24> PMFSH Past Medical History Medical History: Medical History UTI (urinary tract infection) Celiac disease Type 1 diabetes <Mackenzie Allen PA-C - Last Filed: 05/30/24 15:10> Surgical History Surgical History: Surgical History No pertinent past surgical history <Mackenzie Allen PA-C - Last Filed: 05/30/24 15:10> Family History Family History: Family History Mother Family history non-contributory <Mackenzie Aleln PA-C - Last Filed: 05/30/24 15:10> Social History Social History: Social History Smoking status: Never smoker Alcohol intake: current Alcohol use details: rare social Substance use type: does not use Living arrangements: with family Gender identity (if verbalized by the patient): Female <Mackenzie Allen PA-C - Last Filed: 05/30/24 15:10> Exam 2 Narrative: APPEARANCE: Well appearing, no pain, no distress, well-nourished. HEAD: normocephalic, atraumatic. EYES: PERRLA/EOMI, conjunctivae clear. NOSE: Normal no drainage EARS:TMS clear with good light reflex. THROAT: Pharynx clear, no exudate. NECK: Supple. No adenopathy, no masses. RESPIRATORY: Airway patent, respirations nonlabored. Clear to auscultation bilaterally, no rales, rhonchi, wheezing. CARDIOVASCULAR: Regular rate and rhythm without murmurs rubs or gallops. ABDOMINAL: Soft, nontender, nondistended, normal bowel sounds MUSCULOSKELETAL: Moves all extremities. Strength/ROM intact, No edema, No calf tenderness. NEURO: Alert. Cranial nerves II through XII intact. Grossly intact SKIN: Warm, dry. Normal Color <Brian Leos MD - Last Filed: 05/30/24 19:24> Course Vital Signs Vital signs: Vital Signs Temperature 98 F 05/30/24 15:06 Pulse Rate 139 H 05/30/24 15:06 Respiratory Rate 19 05/30/24 15:06 Blood Pressure 130/93 H 05/30/24 15:06 Pulse Oximetry 100 05/30/24 15:06 Oxygen Delivery Room Air 05/30/24 15:06 Temperature 98.2 F 05/30/24 18:23 Pulse Rate 115 H 05/30/24 19:20 Respiratory Rate 15 05/30/24 19:20 Blood Pressure 121/70 05/30/24 18:23 Pulse Oximetry 97 05/30/24 19:20 Oxygen Delivery Room Air 05/30/24 15:06 <Mackenzie Allen PA-C - Last Filed: 05/30/24 15:10> Vital Signs Temperature 98 F 05/30/24 15:06 Pulse Rate 139 H 05/30/24 15:06 Respiratory Rate 19 05/30/24 15:06 Blood Pressure 130/93 H 05/30/24 15:06 Pulse Oximetry 100 05/30/24 15:06 Oxygen Delivery Room Air 05/30/24 15:06 Temperature 98.2 F 05/30/24 18:23 Pulse Rate 115 H 05/30/24 19:20 Respiratory Rate 15 05/30/24 19:20 Blood Pressure 121/70 05/30/24 18:23 Pulse Oximetry 97 05/30/24 19:20 Oxygen Delivery Room Air 05/30/24 15:06 <Brian Leos MD - Last Filed: 05/30/24 19:24> MDM - Female Genitourinary MDM Narrative Medical decision making narrative: 24-year-old female presented emergency department for evaluation for right flank pain. Patient did have a urine culture from 2 days ago that did show a was positive for E coli. Patient had a urine dip earlier today that was positive for nitrates. Patient does not have any pain with urination but does have right flank pain. Urgent Care was concerned that the patient may have a kidney stone so the referred to the emergency department for further evaluation. At time of evaluation patient is well-appearing, patient is afebrile but does have a leukocytosis of 17.1 with hemoglobin of 13.3. Patient is a type 1 diabetic and does have an insulin pump on, patient states she has not been having any ketones that she has measured but has been having an elevated blood sugar in the 300s. UA was positive for ketones here. Patient was tachycardic with heart rate into the 110. Patient was started on IV Rocephin due to the recent urine culture. She was treated with 2 L IV fluids. Patient's insulin pump as currently working. Patient was updated on results of the workup and plan for treatment. On re-evaluation patient states he does feel improved. Patient's heart rate was decreased to 103. Patient was offered admission but patient is alert oriented and patient did decline. Patient is making urine. Patient was treated IV antibiotics prior to discharge. Patient will be discharged home with Keflex. Patient was encouraged to return to the emergency department she any worsening symptoms. <Brian Leos MD - Last Filed: 05/30/24 19:24> Differential Diagnosis Differential diagnosis: Likely urinary tract infection, cystitis and other <Brian Leos MD - Last Filed: 05/30/24 19:24> Lab Data Attestation: I reviewed the patient's lab results. <Brian Leos MD - Last Filed: 05/30/24 19:24> Result diagrams: 05/30/24 15:39 05/30/24 15:39 <Mackenzie Allen PA-C - Last Filed: 05/30/24 15:10> Labs: Lab Results 05/30/24 05/30/24 Range/Units 15:38 15:39 WBC 17.1 H (4.5-10.0) K/mm3 RBC 4.45 (4.2-5.4) M/mm3 Hgb 13.3 (12.0-15.0) g/dL Hct 39.4 (37.0-47.0) % MCV 88.5 (80-100) fl MCH 29.9 (26-34) pg MCHC 33.8 (32-36) g/dl RDW 12.0 (11.5-14.5) % Plt Count 260 (150-375) k/mm3 MPV 10.3 (7.4-10.4) fl Immature Gran % (Auto) 0.5 (0-0.5) % Neut % (Auto) 78.8 H (45.5-73.1) % Lymph % (Auto) 12.6 L (18.3-44.2) % [place] % (Auto) 7.8 (2.6-8.5) % Eos % (Auto) 0.1 (0-4.4) % Baso % (Auto) 0.2 (0.2-1.2) % Lymph # (Auto) 2.15 (0.9-3.2) K/mm3 [place] # (Auto) 1.3 H (0.1-0.6) K/mm3 Eos # (Auto) 0.0 (0-0.3) K/mm3 Baso # (Auto) 0.0 (0.0-0.1) K/mm3 Abs Immat Gran (auto) 0.08 H (0.00-0.031) K/mm3 Absolute Neuts (auto) 13.5 H (1.3-6.7) K/mm3 Absolute Nucleated RBC 0.000 (0.0-0.012) K/mm3 Nucleated RBC % 0.0 (0.0-0.2) % Sodium 135 L (137-145) mmol/L Potassium 3.5 (3.4-5.0) mmol/L Chloride 100 (98-107) mmol/L Carbon Dioxide 22 (22-30) mmol/L Anion Gap 13 H (4-12) mmol/L BUN 10 (7-17) mg/dL Creatinine 0.58 L (0.7-1.0) mg/dL Estim Creat Clear Calc 120 ml/min Estimated GFR > 60 (59 - ) Glucose 295 H (65-110) mg/dL Calcium 9.3 (8.4-10.2) mg/dL Total Bilirubin 0.9 (0.2-1.3) mg/dL AST 20 (14-36) U/L ALT 21 (6-35) U/L Alkaline Phosphatase 72 (38-126) U/L Total Protein 8.0 (6.3-8.2) g/dL Albumin 4.3 (3.5-5.1) g/dL Lipase 23 (23-300) U/L Urine Color Yellow (Yellow) Urine Appearance Clear (Clear) Urine pH 5.5 (5.0-9.0) Ur Specific [place] 1.030 (1.001-1.035) Urine Protein Negative (Negative) mg/dL Urine Glucose (UA) 3+ H (Negative) mg/dL Urine Ketones 3+ H (Negative) mg/dL Ur Blood (Man) Negative (Negative) Urine Nitrate Negative (Negative) Urine Bilirubin Negative (Negative) Urine Urobilinogen 0.2 (<2.0) mg/dL Leukocyte Esterase Rfl Negative (Negative) LYRIC/UL POC Urine HCG, Qual Negative (Negative) <Mackenzie Allen PA-C - Last Filed: 05/30/24 15:10> Lab Results 05/30/24 05/30/24 Range/Units 15:38 15:39 WBC 17.1 H (4.5-10.0) K/mm3 RBC 4.45 (4.2-5.4) M/mm3 Hgb 13.3 (12.0-15.0) g/dL Hct 39.4 (37.0-47.0) % MCV 88.5 (80-100) fl MCH 29.9 (26-34) pg MCHC 33.8 (32-36) g/dl RDW 12.0 (11.5-14.5) % Plt Count 260 (150-375) k/mm3 MPV 10.3 (7.4-10.4) fl Immature Gran % (Auto) 0.5 (0-0.5) % Neut % (Auto) 78.8 H (45.5-73.1) % Lymph % (Auto) 12.6 L (18.3-44.2) % [place] % (Auto) 7.8 (2.6-8.5) % Eos % (Auto) 0.1 (0-4.4) % Baso % (Auto) 0.2 (0.2-1.2) % Lymph # (Auto) 2.15 (0.9-3.2) K/mm3 [place] # (Auto) 1.3 H (0.1-0.6) K/mm3 Eos # (Auto) 0.0 (0-0.3) K/mm3 Baso # (Auto) 0.0 (0.0-0.1) K/mm3 Abs Immat Gran (auto) 0.08 H (0.00-0.031) K/mm3 Absolute Neuts (auto) 13.5 H (1.3-6.7) K/mm3 Absolute Nucleated RBC 0.000 (0.0-0.012) K/mm3 Nucleated RBC % 0.0 (0.0-0.2) % Sodium 135 L (137-145) mmol/L Potassium 3.5 (3.4-5.0) mmol/L Chloride 100 (98-107) mmol/L Carbon Dioxide 22 (22-30) mmol/L Anion Gap 13 H (4-12) mmol/L BUN 10 (7-17) mg/dL Creatinine 0.58 L (0.7-1.0) mg/dL Estim Creat Clear Calc 120 ml/min Estimated GFR > 60 (59 - ) Glucose 295 H (65-110) mg/dL Calcium 9.3 (8.4-10.2) mg/dL Total Bilirubin 0.9 (0.2-1.3) mg/dL AST 20 (14-36) U/L ALT 21 (6-35) U/L Alkaline Phosphatase 72 (38-126) U/L Total Protein 8.0 (6.3-8.2) g/dL Albumin 4.3 (3.5-5.1) g/dL Lipase 23 (23-300) U/L Urine Color Yellow (Yellow) Urine Appearance Clear (Clear) Urine pH 5.5 (5.0-9.0) Ur Specific [place] 1.030 (1.001-1.035) Urine Protein Negative (Negative) mg/dL Urine Glucose (UA) 3+ H (Negative) mg/dL Urine Ketones 3+ H (Negative) mg/dL Ur Blood (Man) Negative (Negative) Urine Nitrate Negative (Negative) Urine Bilirubin Negative (Negative) Urine Urobilinogen 0.2 (<2.0) mg/dL Leukocyte Esterase Rfl Negative (Negative) LYRIC/UL POC Urine HCG, Qual Negative (Negative) <Brian Leos MD - Last Filed: 05/30/24 19:24> Imaging Data Radiologist's impression: Impressions Abdomen/Pelvis CT 05/30/24 15:55 IMPRESSION: 1. A few punctate nonobstructing bilateral renal stones. No ureteral stones or hydronephrosis. Chest X-Ray 05/30/24 16:01 IMPRESSION: No focal infiltrate or effusion. <Brian Leos MD - Last Filed: 05/30/24 19:24> Discharge Plan Discharge Clinical Impression: UTI (urinary tract infection), Tachycardia <Mackenzie Allen PA-C - Last Filed: 05/30/24 15:10> Patient Disposition: Home, Self-Care <Mackenzie Allen PA-C - Last Filed: 05/30/24 15:10> Condition: Stable <Mackenzie Allen PA-C - Last Filed: 05/30/24 15:10> Instructions: Antibiotic Form, Urinary Tract Infection in Women (ED) <Mackenzie Allen PA-C - Last Filed: 05/30/24 15:10> Additional Instructions: You were offered admission but you preferred to be discharged home. If you have any worsening symptoms please feel free to call or return to the emergency department at any time. Antibiotic as directed until completed. Zofran as needed for nausea control. Have close follow-up with your primary care physician. <Mackenzie Allen PA-C - Last Filed: 05/30/24 15:10> Patient Language: Kosovan <Mackenzie Allen PA-C - Last Filed: 05/30/24 15:10> Prescriptions: New cephalexin 500 mg capsule 500 mg PO Q8H 7 Days Qty: 21 0RF ondansetron 4 mg tablet,disintegrating 4 mg PO Q8H PRN (Reason: nausea and vomiting) Qty: 14 0RF No Action levothyroxine [Unithroid] 25 mcg tablet ergocalciferol (vitamin D2) 1,250 mcg (50,000 unit) capsule insulin aspart U-100 [Novolog U-100 Insulin aspart] 100 unit/mL solution 1 unit subcut DIRECTED <Mackenzie Allen PA-C - Last Filed: 05/30/24 15:10> Follow-up/Referrals: Teo,Gloria Gordon MD [Primary Care Provider] - <Mackenzie Allen PA-C - Last Filed: 05/30/24 15:10>
[2024-05-30 15:40] LABS: BEDSIDEPREGUCG Negative (Negative)
[2024-05-30 15:48] LABS: Basophils Percent Auto 0.2 % (0.2-1.2); Eosinophils Percent Auto 0.1 % (0-4.4); Hematocrit 39.4 % (37.0-47.0); Hemoglobin 13.3 g/dL (12.0-15.0); Immature Granulocyte Absolute 0.08 K/mm3 (0.00-0.031); Immature Granulocyte Percent A 0.5 % (0-0.5); Lymphocytes Absolute Auto 2.15 K/mm3 (0.9-3.2); Lymphocytes Percent Auto 12.6 % (18.3-44.2); Mean Corpuscular HGB Conc 33.8 g/dl (32-36); Mean Corpuscular Hemoglobin 29.9 pg (26-34); Mean Corpuscular Volume 88.5 fl (80-100); Mean Platelet Volume 10.3 fl (7.4-10.4); Monocytes Absolute Auto 1.3 K/mm3 (0.1-0.6); Monocytes Percent Auto 7.8 % (2.6-8.5); Neutrophils Absolute Auto 13.5 K/mm3 (1.3-6.7); Neutrophils Percent Auto 78.8 % (45.5-73.1); Platelet Count Result 260 k/mm3 (150-375); Red Blood Count 4.45 M/mm3 (4.2-5.4); White Blood Count 17.1 K/mm3 (4.5-10.0)
[2024-05-30 15:53] LABS: Add Urine Microscopic? NO; Appearance Urine Clear (Clear); Bilirubin Urine Negative (Negative); Blood Urine Negative (Negative); Color Urine Yellow (Yellow); Glucose Urine UA 3+ mg/dL (Negative); Ketones Urine 3+ mg/dL (Negative); Leukocyte Esterase Ur Negative LEU/UL (Negative); Nitrate Urine Negative (Negative); Protein Urine Negative (Negative); Urobilinogen Urine 0.2 mg/dL (<2.0); pH Urine 5.5 (5.0-9.0)
[2024-05-30 16:05] LABS: Alanine Aminotransferase 21 U/L (6-35); Albumin Level 4.3 g/dL (3.5-5.1); Alkaline Phosphatase 72 U/L (38-126); Anion Gap 13 mmol/L (4-12); Aspartate Amino Transferase 20 U/L (14-36); Bilirubin,Total 0.9 mg/dL (0.2-1.3); Blood Urea Nitrogen 10 mg/dL (7-17); Calcium 9.3 mg/dL (8.4-10.2); Carbon Dioxide 22 mmol/L (22-30); Chloride 100 mmol/L (98-107); Estimated CRCL calculation 120 ml/min; Estimated Glomerular Filt Rate > 60; Glucose 295 mg/dL (65-110); Lipase 23 U/L (23-300); Potassium 3.5 mmol/L (3.4-5.0); Sodium 135 mmol/L (137-145)
[2024-05-30 16:31] VITALS: BP 136/82; PULSE 120; RESP 20; TEMP 36.9; O2SAT 100
--- OUTSIDE RECORDS SUMMARY | 2024-05-30 17:04 | XMS_ITS | Referral Summary ---
Author Organization [facility] ospital Address [address] [place] [address] Care Team Providers Care Continuous Pickling Line Pickler Helper Name Role Phone Albania Butler MD Primary Care Provider [phone] Allergies Active Allergy Reactions Criticality Noted Date [...] mellitus with hyperglycemia (HCC) USE DIRECTED BY DAIRY LAB TECHNICIAN TO INJECT UP TO 140 UNITS SUBCUTANEOUSLY [...] on file Legal Sex Female 8:28 AM TAXONOMIST Gender Identity Female 09/28/2019 10:39 PM CDT [...] BH-Adherence Behavioral [facility] No change(2020 11:44 AM TAXONOMIST) No Carmen Calzada, PhD Note: Increase consistency in completing prescribed medical regimen Increase probelm solving skills BH-Anxiety Behavioral Health No change(2020 11:44 AM TAXONOMIST) No [place] Carmen johnson, PhD Note: Decrease anxious rumination [...] COMPREHENSIVE METABOLIC PANEL Routine 04/04/2021 8:42 AM TAXONOMIST Celiac disease/sprue from Last 3 Months or Most Recently Relevant to Health Maintenance Results * Albumin Creatinine Ratio, Urine (02/23/2023 11:19 AM CDT) Albumin Ur <12.0 mg/L JOSE Comment: Interpretive Data No reference range established. Current interpretive data was last revised 2018. Testing performed by: [address] [address] Creatinine Ur 55.0 mg/dL JOSE Comment: Interpretive Data No reference range established. Current interpretive data was last revised 2018. Testing performed by: [address] [address] Albumin Creatinine Ratio, Ur <22 1 - 29 mg/g JOSE Comment:Testing performed by : [address] [address] Urine (Urine, Clean Catch) 02/23/2023 11:19 AM CDT 02/23/2023 11:51 AM CDT Krishan Halina Honey EXCAVATING MACHINE OPERATOR LAB URINE ORDERABLES Fi nal Result Performing Organization Address [facility] Co de Phone Number [address] [place] [place] [address] * TSH (02/23/2023 11:12 AM CDT) Thyroid Stimulating Hormone 1.45 0.30 - 4.20 mcIUnit/mL JOSE Comment:Testing performed by : [address] [address] Blood 02/23/2023 11:1 2 AM CDT 02/23/2023 2:02 PM CDT Krishan Méndez EXCAVATING MACHINE OPERATOR LAB BLOOD ORDERABLES Fi nal Result Performing Organization Address [facility] Co de Phone Number [address] [place] [address] * Lipid panel (02/23/2023 11:12 AM CDT) [...] last revised on 2017. Testing performed by: [address] [address] Triglycerides 100 <=149 mg/dL JOSE Comment: Interpretive [...] last revised on 2017. Testing performed by: [address] [address] HDL 62 >=40 mg/dL JOSE Comment: Interpretive [...] last revised on 2017. Testing performed by: [address] [address] LDL, calculated 109 <=129 mg/dL JOSE Comment: [...] last revised on 2017. Testing performed by: [address] [address] Non-HDL Cholesterol 129 mg/dL JOSE Comment: Interpretive [...] last revised on 2017. Testing performed by: [address] [address] Chol/HDL ratio 3 JOSE Comment:Testing performed by : [address] [address] Blood 02/23/2023 11:1 2 AM CDT 02/23/2023 2:02 PM CDT Narrative JOSE - 02/23/2023 2:38 PM CDT These lab test should be done fasting. This means do not eat or drink for at least 12 hours prior to getting your blood drawn. Krishan Méndez NP LAB BLOOD ORDERABLES nal Result [facility] [address] [facility] [place] [address] * POCT hemoglobin A1c (02/23/2023 10:20 AM CDT) Hemoglobin A1C, POC 10.9 % Blood spot 02/23/2023 10:2 0 AM CDT Krishan Méndez NP POINT OF CARE TEST ORDE RABLES Final Result * (ABNORMAL) Comprehensive metabolic panel (04/04/2021 8:42 AM TAXONOMIST) Glucose 212(H) 65 - 99 mg/dL [facility] - 01 BUN 9 6 - 20 mg/dL [facility] - 01 Creatinine, Serum 0.76 0.57 - 1.00 mg/dL [facility] - 01 eGFR If NonAfricn Am 114 >59 mL/min/1. 73 [facility] - 01 eGFR If Africn Am 132 >59 mL/min/1. 73 [facility] - 01 Comment: In accordance with recommendations from the NKF-ASN Task force, [facility] is in the process of updating its [...] 01 Blood specimen (specimen) 04/04/2021 8:42 AM TAXONOMIST 04/04/2021 Narrative [facility] - 04/05/2021 2:10 PM TAXONOMIST Performed at: 01 - [facility] [address] [id number] Tungsten Refiner: Asher Nash PhD, Phone: [phone] Yeni Sullivan MD LAB BLOOD ORDERABLES Final Result [facility] - 01 from Last 3 Months or Most Recently Relevant to Health Maintenance Insurance [employer] HMO HEALTHCARE O [facility] HEALTHCARE O Advance Directives For more information, please contact: [phone] Documents on File Type Date Recorded Patient Front Office Agent Expl anation ADVANCE DIRECTIVE 05/15/2019 6:40 AM ADVANCE DIRECTIVE 04/10/2019 3:09 PM Care Teams Continuous Pickling Line Pickler Helper Relationship Specialty Start Date End Date Albania Butler MD [address] [place] [address] PCP - General 11/08/16
--- OUTSIDE RECORDS SUMMARY | 2024-05-30 17:04 | XMS_ITS | Clinical Summary ---
Author Organization [facility] Address [address] [place] [address] Care Team Providers Care Fruit Tester Name Role Phone Albania Butler MD Primary Care Provider [phone] Allergies Active Allergy Reactions Criticality Noted Date [...] mellitus with hyperglycemia (HCC) USE DIRECTED BY HOUSING ASSISTANT TO INJECT UP TO 140 UNITS SUBCUTANEOUSLY [...] on file Legal Sex Female 8:28 AM CYTOTECHNOLOGIST SUPERVISOR Gender Identity Female 09/28/2019 10:39 PM CDT [...] [facility]-Adherence Behavioral [facility] No change(2020 11:44 AM CYTOTECHNOLOGIST SUPERVISOR) No Carmen Calzada, PhD Note: Increase consistency in completing prescribed medical regimen Increase probelm solving skills BH-Anxiety Behavioral Health No change(2020 11:44 AM CYTOTECHNOLOGIST SUPERVISOR) No Carmen Calzada, PhD Note: Decrease anxious [...] COMPREHENSIVE METABOLIC PANEL Routine 04/04/2021 8:42 AM CYTOTECHNOLOGIST SUPERVISOR Celiac disease/sprue from Last 3 Months or Most Recently Relevant to Health Maintenance Results * Albumin Creatinine Ratio, Urine (02/23/2023 11:19 AM CDT) Albumin Ur <12.0 mg/L JOSE MERIDA Comment: Interpretive Data No reference range established. Current interpretive data was last revised 2018. Testing performed by: [address] [address] Creatinine Ur 55.0 mg/dL JOSE MERIDA Comment: Interpretive Data No reference range established. Current interpretive data was last revised 2018. Testing performed by: [address] [address] Albumin Creatinine Ratio, Ur <22 1 - 29 mg/g JOSE MERIDA Comment:Testing performed by : [address] [address] Urine (Urine, Clean Catch) 02/23/2023 11:19 AM CDT 02/23/2023 11:51 AM CDT Krishan Méndez LITIGATOR LAB URINE ORDERABLES Fi nal Result Performing Organization Address [facility] [[email or web address]] de Phone Number [address] [address] * TSH (02/23/2023 11:12 AM CDT) Thyroid Stimulating Hormone 1.45 0.30 - 4.20 mcIUnit/mL JOSE Comment:Testing performed by : [address] [address] Blood 02/23/2023 11:1 2 AM CDT 02/23/2023 2:02 PM CDT Krishan Méndez NP LAB BLOOD ORDERABLES Fi nal Result Performing Organization Address [email or web address] de Phone Number [address] [address] * Lipid panel (02/23/2023 11:12 AM CDT) [...] last revised on 2017. Testing performed by: [address] [address] Triglycerides 100 <=149 mg/dL JOSE Comment: Interpretive [...] last revised on 2017. Testing performed by: [address] [address] HDL 62 >=40 mg/dL JOSE Comment: Interpretive [...] last revised on 2017. Testing performed by: [address] [address] LDL, calculated 109 <=129 mg/dL JOSE Comment: [...] last revised on 2017. Testing performed by: [address] [address] Non-HDL Cholesterol 129 mg/dL JOSE Comment: Interpretive [...] last revised on 2017. Testing performed by: [facility], [address] [place] [address]., [address] Chol/HDL ratio 3 JOSE Comment:Testing performed by : [address] [address] Blood 02/23/2023 11:1 2 AM CDT 02/23/2023 2:02 PM CDT Narrative JOSE - 02/23/2023 2:38 PM CDT These lab test should be done fasting. This means do not eat or drink for at least 12 hours prior to getting your blood drawn. Krishan Méndez NP LAB BLOOD ORDERABLES Fi nal Result [facility] [address] [facility] [place] [address] * POCT hemoglobin A1c (02/23/2023 10:20 AM CDT) Hemoglobin A1C, POC 10.9 % Blood spot 02/23/2023 10:2 0 AM CDT Krishan Méndez NP POINT OF CARE TEST ORDE RABLES Final Result * (ABNORMAL) Comprehensive metabolic panel (04/04/2021 8:42 AM CYTOTECHNOLOGIST SUPERVISOR) Glucose 212(H) 65 - 99 mg/dL [facility] - 01 BUN 9 6 - 20 mg/dL [facility] - 01 Creatinine, Serum 0.76 0.57 - 1.00 mg/dL [facility] - 01 eGFR If NonAfricn Am 114 >59 mL/min/1. 73 [facility] - 01 eGFR If Africn Am 132 >59 mL/min/1. 73 [facility] - 01 Comment: In accordance with recommendations from the NKF-ASN Task force, [facility] is in the process of [...] 01 Blood specimen (specimen) 04/04/2021 8:42 AM CYTOTECHNOLOGIST SUPERVISOR 04/04/2021 Narrative [facility] - 04/05/2021 2:10 PM CYTOTECHNOLOGIST SUPERVISOR Performed at: 01 - [facility] [address] [id number] Business Intelligence Administrator: Asher Nash PhD, Phone: [phone] us Yeni Sullivan MD LAB BLOOD ORDERABLES Final Result [facility] - 01 from Last 3 Months or Most Recently Relevant to Health Maintenance [place] [address] [address] [place] [address] HEALTHCARE HMO [facility] HEALTHCARE HMO Advance Directives For more information, please contact: [phone] Documents on File Type Date Recorded Patient Inspector [employer] Expl anation ADVANCE DIRECTIVE 05/15/2019 6:40 AM ADVANCE DIRECTIVE 04/10/2019 3:09 PM Care Teams Fruit Tester Relationship Specialty Start Date End Date Albania Butler MD [address] [place] [address] PCP - General 11/08/16
[2024-05-30] MEDS: SODIUM CHLORIDE 0.9% IV 1,000 ML 999 ML IV CONT ×2 (17:25→17:27)
[2024-05-30] MEDS: LACTATED RINGERS 1,000 ML 999 ML IV CONT (18:20)
[2024-05-30 18:23] VITALS: BP 121/70; PULSE 112; RESP 20; TEMP 36.8; O2SAT 100
[2024-05-30 19:20] VITALS: PULSE 115; RESP 15; O2SAT 97
== END 2024-05-30 19:22 | disposition home or self-care (01) ==
PROVIDERS: Physician Assistant; Emergency Provider Emergency Medicine; PCP Internal Medicine Endocrinology, Diabetes & Metabolism
DX: N39.0 Urinary tract infection, site not specified (principal); R00.0 Tachycardia, unspecified; K90.0 Celiac disease; E10.9 Type 1 diabetes mellitus without complications; Z87.442 Personal history of urinary calculi; Z79.4 Long term (current) use of insulin
CPT/HCPCS: 36415; 71046; 74176; 80053; 81003; 81025; 83690; 85025; 87077; 87081; 87086; 87186; 87804; 87880; 96361; 96365; 99284; J0696; J7030; J7120